=== PATIENT | male | born 1945 | race Caucasian/White ===

== ENCOUNTER 2020-02-08 07:46 | Day surgery (SDC) | payer MEDICARE, SELFPAY ==
--- NOTE | 2020-02-07 13:50 | P.CONAN_ITS ---
Documented by User: Ella Mcdanielsney 02/07/20 14:03 HPI - Anesthesia Eval Consult details Narrative: 74yo M for L ankle hardware removal s/p L ankle ORIF 10/2018 with GA-LMA 5 PMFSH Past Medical History Medical History Fatty liver History of tennis elbow HLD (hyperlipidemia) HTN (hypertension) ANTONY (obstructive sleep apnea) Osteoarthritis Rheumatic fever Shingles Skin cancer Surgical History Surgical History H/O colonoscopy History of ankle surgery Social History Social History Are you a primary animal care assistant to a significant other at home: No Do you presently have visiting nurse or other home services: No Smoking Status: Never smoker Use of substances other than those prescribed or required for medical reasons: No Advance Directives: Yes Advance Directives Information Provided: Yes Advance Directives on File: Yes (t) Advance Directives Date on File: 02/08/20 Meds Allergies Allergy/AdvReac Type Severity Reaction Status Date / Time Tetracyclines [TETRACYCLINES] Allergy Mild RASH Unverified 12/28/19 19:42 tetracycline Allergy Unknown Rash Verified 02/08/20 08:50 Home Medications Medication Instructions Recorded Confirmed Type hydrochlorothiazide 1 tab PO DAILY 02/07/20 02/07/20 History lisinopril 1 tab PO DAILY 02/07/20 02/07/20 History simvastatin 1 tab PO BEDTIME 02/07/20 02/07/20 History Exam Exam Date and Time: February 07, 2020 1350 Narrative Narrative: EKG 04/2019: SB@58 with 1st degree AV block Assessment and Plan Assessment Anesthesia Assessment: Chart Reviewed Documented by User: Vish Uriarte MD 02/08/20 09:08 PMFSH Past Medical History Medical History Fatty liver History of tennis elbow HLD (hyperlipidemia) HTN (hypertension) ANTONY (obstructive sleep apnea) Osteoarthritis Rheumatic fever Shingles Skin cancer Surgical History Surgical History H/O colonoscopy History of ankle surgery Social History Social History Are you a primary animal care assistant to a significant other at home: No Do you presently have visiting nurse or other home services: No Smoking Status: Never smoker Use of substances other than those prescribed or required for medical reasons: No Advance Directives: Yes Advance Directives Information Provided: Yes Advance Directives on File: Yes (t) Advance Directives Date on File: 02/08/20 Meds Allergies Allergy/AdvReac Type Severity Reaction Status Date / Time Tetracyclines [TETRACYCLINES] Allergy Mild RASH Unverified 12/28/19 19:42 tetracycline Allergy Unknown Rash Verified 02/08/20 08:50 Home Medications Medication Instructions Recorded Confirmed Type hydrochlorothiazide 1 tab PO DAILY 02/07/20 02/07/20 History lisinopril 1 tab PO DAILY 02/07/20 02/07/20 History simvastatin 1 tab PO BEDTIME 02/07/20 02/07/20 History Exam Airway Mallampati Class: II TM Dist: >3cm Neck ROM: Full Loose/Missing/Broken Teeth: No Heart: rrr Lungs: nl Other: ao Assessment and Plan Assessment Anesthesia Assessment: Anesthesia Plan Discussed and Chart Reviewed Final Anesthetic Review NPO: Yes ASA Class: II Final Preanesthetic Review: No Changes in Pt Med Stat, Meds/Allgs Chart Reviewed, Consent Obtained/Reviewed and Anes Risks/Benef Reviewed Patient Risk: Low Procedure Risk: Low Anesthetic Plan Anesthetic Plan: MAC: Disposition: Standard PACU
--- NOTE | 2020-02-08 06:46 | MHC.SHP ---
Pre-Procedural Eval Section A The patient is an INPATIENT: No Changes since office visit: No Cold of Flu in the past 2 weeks, No New Medical Problems, No Changes in Medication and No Patient answered all questions The History & Physical has been completed within 30 days and I have reviewed it.: Yes Section B Chief Complaint: Hx of ankle Surgery and Delayed Wound Healing Allergies: Allergies Allergy/AdvReac Type Severity Reaction Status Date / Time Tetracyclines [TETRACYCLINES] Allergy Mild RASH Unverified 12/28/19 19:42 tetracycline Allergy Unknown Verified 05/17/19 00:00 Plan Patient has been examined and remains a candidate for the planned procedure
[2020-02-08 08:18] VITALS: BP 144/78; PULSE 55; RESP 16; TEMP 36.6; O2SAT 98; BMI 33.7
[2020-02-08] MEDS: Lactated Ringers 1,000 ML 100 ML IVCONT (08:51)
--- NOTE | 2020-02-08 09:06 | FL_ITS ---
EXAMINATION: XR FLUOROSCOPY WITH IMAGES CLINICAL INFORMATION: Orthopedic hardware removal. COMPARISON: Radiographs left ankle 12/14/2018. TECHNIQUE: Fluoroscopy performed by Dr. Susan Wheat. Fluoroscopy time: 0.1 minutes DAP: 5.75 mGycm2 Images: 1 FINDINGS: There is a clamp pointed towards the metallic pin overlying the mid talus. Only one pin is demonstrated, 2 on prior exam 2019. There is plate and screws lower tibia as before. FL/FL guidance in OR IMPRESSION: Fluoroscopy for orthopedic procedure.
--- NOTE | 2020-02-08 10:00 | PM.PRCOR ---
Brief Operative Note Date of procedure: 02/08/20 Pre-op diagnosis: PAINFUL HARDWARE LEFT ANKLE Post-op diagnosis: same Procedure: REMOVAL PINS MEDIAL SIDE LEFT ANKLE Anesthesia: MAC and local Surgeon: Susan Wheat Estimated blood loss (mL): 0 Pathology: none sent Condition: stable Disposition: PACU
[2020-02-08 10:03] VITALS: BP 113/65; PULSE 55; RESP 16; TEMP 36.1; O2SAT 94
[2020-02-08 10:15] VITALS: BP 112/67; PULSE 70; RESP 18; O2SAT 95
--- NOTE | 2020-02-09 16:17 | OP_ITS ---
SURGEON: Susan Wheat MD PREOPERATIVE DIAGNOSIS: Painful hardware, left ankle. POSTOPERATIVE DIAGNOSIS: Painful hardware, left ankle. PROCEDURE PERFORMED: Removal of pins, medial side of the left ankle. ESTIMATED BLOOD LOSS: COMPLICATIONS: ANESTHESIA: ASSISTANTS: SPECIMENS: CLINICAL NOTE: This gentleman underwent an open reduction and internal fixation of his left ankle a while ago, who has had ongoing problems with some irritation by the pin on the medial side as this was causing some occasional blistering and slight fluid drainage. It was elected to remove and therefore after explaining the risks, benefits, alternatives and answering all his questions, it was mutually agreed upon to carry out the following procedure. DESCRIPTION OF PROCEDURE: Under MAC anesthesia as well as 2 mL of 0.75% Marcaine with epinephrine injected locally, a small incision was made over the old incision site. The 2 pins were identified under fluoroscopy and removed. Therefore, we proceeded to closure. The wound was irrigated. The skin approximated using interrupted 3-0 nylon. Sterile dressing was then applied. The patient then was transferred to the room bed, then taken to recovery room in good condition. Intraoperatively, there was no blood loss or complications. MD RACHEL Edwards/BHAVANA / [id number]
== END 2020-02-08 10:52 | disposition home or self-care (01) ==
PROVIDERS: Visit Provider Orthopaedic Surgery
PROC: (CPT 20680; principal; 2020-02-08 09:40)
DX: T81.89XA Other complications of procedures, not elsewhere classified, initial encounter (principal); T84.84XA Pain due to internal orthopedic prosthetic devices, implants and grafts, initial encounter; M25.572 Pain in left ankle and joints of left foot; Y83.8 Other surgical procedures as the cause of abnormal reaction of the patient, or of later complication, without mention of misadventure at the time of the procedure; Y92.9 Unspecified place or not applicable; I10 Essential (primary) hypertension; G47.33 Obstructive sleep apnea (adult) (pediatric); Z79.899 Other long term (current) drug therapy; Z88.1 Allergy status to other antibiotic agents
CPT/HCPCS: 20680; J3010

== ENCOUNTER → 2020-02-19 10:13 | Outpatient (BNVA) | payer MEDICARE, SELFPAY | PROVIDERS: Visit Provider Physician Assistant | DX: Z09 Encounter for follow-up examination after completed treatment for conditions other than malignant neoplasm (principal) | CPT/HCPCS: 99212 ==

== ENCOUNTER 2020-07-01 08:47 | Outpatient (REF) | payer MEDICARE, SELFPAY ==
--- NOTE | ~2020-07-01 | US_ITS ---
EXAMINATION: US RETROPERITONEAL LIMITED (RENAL ONLY) CLINICAL INFORMATION: Renal cyst. COMPARISON: None TECHNIQUE: Real-time imaging of the kidneys. FINDINGS: RIGHT KIDNEY: 13.0 x 6.9 x 7.1 cm (SAG x AP x TRV). The kidney is normal in size, contour, and echogenicity. Renal cortical thickness is normal. No renal calculi or hydronephrosis. There are 2 midpole cysts. They measure 5.7 x 4.4 x 4.6 cm and 2.0 x 1.7 x 1.9 cm and has septation. LEFT KIDNEY: 16.1 x 8.2 x 7.0 cm (SAG x AP x TRV). The kidney is normal in size, contour, and echogenicity. Renal cortical thickness is normal. No renal calculi or hydronephrosis. There are 3 anechoic cysts in the midpole. They measure 2.7 x 2.6 x 2.4 cm, 3.1 x 2.3 x 2.5 cm and 1.7 x 1.7 x 1.5 cm. US/US renal BI IMPRESSION: Bilateral renal cysts. One of the midpole cysts right kidney has septation and is complex.
== END 2020-07-01 08:48 | disposition home or self-care (01) ==
LOC: HO.US 08:47
PROVIDERS: PCP Internal Medicine; Visit Provider Internal Medicine
DX: N28.1 Cyst of kidney, acquired (principal)
CPT/HCPCS: 76775

== ENCOUNTER → 2020-09-03 09:10 | Outpatient (BNVA) | payer MEDICARE, SELFPAY | PROVIDERS: PCP Internal Medicine; Visit Provider Urology | DX: N28.1 Cyst of kidney, acquired (principal) | CPT/HCPCS: 99202 ==

== ENCOUNTER 2021-08-25 09:16 | Outpatient (REF) | payer MEDICARE, SELFPAY ==
--- NOTE | ~2021-08-25 | US_ITS ---
EXAMINATION: US RETROPERITONEAL LIMITED (RENAL ONLY) CLINICAL INFORMATION: Calculus of kidney. COMPARISON: Renal ultrasound 07/01/2020 TECHNIQUE: Real-time imaging of the kidneys. FINDINGS: RIGHT KIDNEY: 13.2 x 6.5 x 7.3 cm (SAG x AP x TRV). The kidney is normal in size, contour, and echogenicity. Renal cortical thickness is normal. No renal calculi or hydronephrosis. Benign-appearing and likely benign renal cysts, one with a thin internal avascular septation measuring up to 6.8 cm. No routine follow up imaging recommended. LEFT KIDNEY: 16.0 x 6.7 x 5.6 cm (SAG x AP x TRV). The kidney is normal in size, contour, and echogenicity. Renal cortical thickness is normal. No hydronephrosis. Likely benign renal cysts measuring up to 4.4 cm, one with a thin internal septation one with a thin internal septation, one with an one with possible mural calcium, no follow-up imaging recommended. A 5 mm nonobstructing left midpole renal stone new from prior. US/US renal BI IMPRESSION: 5 mm nonobstructing left midpole renal stone with new from prior.
== END 2021-08-25 09:17 | disposition home or self-care (01) ==
LOC: HO.US 09:16
PROVIDERS: PCP Internal Medicine; Visit Provider Urology
DX: N20.0 Calculus of kidney (principal)
CPT/HCPCS: 76775

== ENCOUNTER → 2021-09-09 13:42 | Outpatient (BNVA) | payer MEDICARE, SELFPAY | PROVIDERS: PCP Internal Medicine; Visit Provider Urology | DX: N20.0 Calculus of kidney (principal); N28.1 Cyst of kidney, acquired | CPT/HCPCS: 99212 ==

== ENCOUNTER 2021-10-20 12:30 | Outpatient (REF) | payer MEDICARE, SELFPAY ==
--- NOTE | ~2021-10-20 | XR_ITS ---
EXAMINATION: XR ANKLE, LEFT CLINICAL INFORMATION: Left ankle pain COMPARISON: Left ankle radiographs 12/14/2018 TECHNIQUE: AP, lateral, and mortise views of the left ankle. FINDINGS: Status post lateral plate and screw fixation of the distal fibula. Fixation is intact. No residual fracture line. Chronic transverse fracture deformity of the medial malleolus with significant widening of the medial clear space and widening of the syndesmotic space. Mild ankle joint space narrowing and minimal osteophyte formation compatible with mild degenerative change. No acute fracture or dislocation. No ankle joint effusion. Subtalar joint space is maintained. Prominent plantar calcaneal spur. XR/XR ankle LT min 3V IMPRESSION: 1. Mild post traumatic ankle joint osteoarthritis. 2. Chronic fracture deformity of the medial malleolus with incongruent ankle mortise with widening of the medial clear space and syndesmotic space. 3. Status post lateral plate and screw fixation of a prior healed fibular fracture. Fixation is intact. 4. No acute osseous injury identified.
== END 2021-10-20 12:31 | disposition home or self-care (01) ==
LOC: HO.HOSX 12:30
PROVIDERS: Visit Provider Physician Assistant
DX: M25.572 Pain in left ankle and joints of left foot (principal); M19.072 Primary osteoarthritis, left ankle and foot
CPT/HCPCS: 73610; 99212

== ENCOUNTER 2022-05-04 08:00 | Day surgery (SDC) | payer MEDICARE, SELFPAY ==
[2022-05-04 08:11] VITALS: BP 160/66; PULSE 63; RESP 20; TEMP 36.6; O2SAT 97; BMI 32.5
[2022-05-04] MEDS: Lactated Ringers 1,000 ML 100 ML IVCONT (08:42)
--- NOTE | 2022-05-04 09:11 | P.CONAN_ITS ---
HPI - Anesthesia Eval Consult details Narrative: 76 yo male patient for colonoscopy PMFSH Active Problems Active Problems: All Active Problems (Updated 05/01/22 @ 07:14 by Anyi Smith RN) History of removal of retained hardware (Acute) Complex renal cyst (Acute) Nephrolithiasis (Acute) Degenerative arthritis of toe joint (Acute) Past Medical History Medical History Fatty liver History of Mohs micrographic surgery for skin cancer History of tennis elbow HLD (hyperlipidemia) HTN (hypertension) ANTONY (obstructive sleep apnea) Osteoarthritis Renal cyst Rheumatic fever Shingles Skin cancer Family History Family history of problems with anesthesia: No Surgical History Surgical History H/O colonoscopy History of ankle surgery Hx of umbilical hernia repair History of Problems with Anesthesia: No Social History Social History Are you a primary veterinarian laboratory animal care to a significant other at home: No Do you presently have visiting nurse or other home services: No Patient Tobacco Use Status: Never used Tobacco Are you DNR?: No Advance Directives: Yes Advance Directives on File: Yes Advance Directives Date on File: 02/08/20 Meds Allergies Allergy/AdvReac Type Severity Reaction Status Date / Time Tetracyclines [TETRACYCLINES] Allergy Mild RASH Verified 10/20/21 13:38 tetracycline Allergy Unknown Rash Verified 10/20/21 13:38 Active Medications: Current Medications Sodium Biphosphate/Sodium Phosphate (Sodium Phosphate,Uintah-Dibasic 133 Ml Enema) 133 ml CO ONCE PRN PRN Reason: Poor Colonoscopy Prep Results Home Medications Medication Instructions Recorded Confirmed Last Taken Type hydrochlorothiazide 25 mg tablet 1 tab PO DAILY 02/07/20 05/04/22 05/02/22 History lisinopril 20 mg tablet (Zestril) 1 tab PO DAILY 02/07/20 05/04/22 05/02/22 History simvastatin 10 mg tablet (Zocor) 1 tab PO BEDTIME 02/07/20 05/04/22 05/02/22 History Joint Support 1 mg PO BID 05/01/22 05/04/22 05/02/22 History PreserVision AREDS-2 1 mg PO DAILY 01/05/04/22 05/02/22 History ascorbic acid (vitamin C) 500 mg 500 mg PO DAILY 05/01/22 05/01/22 05/02/22 History tablet (Vitamin C) multivitamin 1 tab PO DAILY 05/01/22 05/01/22 05/02/22 History red yeast rice 1 mg PO DAILY 05/01/22 05/04/22 05/02/22 History saw palmetto 1 mg PO DAILY 05/01/22 05/04/22 05/02/22 History vitamin E 1 mg PO DAILY 05/01/22 05/04/22 05/02/22 History Exam Exam Date and Time: May 04, 2022 0911 Height,Weight and Vital Signs: Height 5 ft 9 in Weight 99.79 kg Last Vital Signs Temp 98 F 05/04/22 08:11 Pulse 63 05/04/22 08:11 Resp 20 05/04/22 08:11 BP 160/66 H 05/04/22 08:11 Pulse Ox 97 05/04/22 08:11 O2 Del Method 05/04/22 08:11 Airway Mallampati Class: III TM Dist: >3cm Neck ROM: Full Loose/Missing/Broken Teeth: Yes (Broken tooth back top left. Denies loose or missing teeth) Heart: RRR ?murmur Lungs: CTAB Assessment and Plan Assessment Anesthesia Assessment: Anesthesia Plan Discussed and Chart Reviewed Final Anesthetic Review Family History of Problems with Anesthesia: No History of Problems with Anesthesia: No NPO: Yes ASA Class: III Final Preanesthetic Review: No Changes in Pt Med Stat, Meds/Allgs Chart Reviewed, Consent Obtained/Reviewed and Anes Risks/Benef Reviewed Patient Risk: Intermediate Procedure Risk: Low Assessment/Block/Sedation in SS: Assess/Block/Sedation-SS Anesthetic Plan Anesthetic Plan: MAC:
[2022-05-04 10:45] VITALS: BP 123/66; PULSE 65; RESP 16; TEMP 36.3; O2SAT 96
--- NOTE | 2022-05-04 10:46 | PM.OP ---
Brief Operative Note Date of Service: 05/04/22 Pre-op diagnosis: Screening Post-op diagnosis: other (Diverticulosis) Procedure: Colonoscopy to the cecum Surgeon: Luis Armando Salomon Anesthesia: MAC Was an Independent Video Producer used for this Procedure?: No Estimated blood loss (mL): 0 Pathology: none sent Condition: stable Disposition: PACU
[2022-05-04 11:00] VITALS: BP 149/76; PULSE 56; RESP 16; TEMP 37; O2SAT 97
--- NOTE | 2022-05-04 22:24 | OP_ITS ---
SURGEON: Luis Armando Salomon MD INDICATIONS: The patient presents for evaluation of personal history of colon polyps, family history of colon cancer, and colorectal cancer screening. Full consent was obtained from him for this, including risks of bleeding and perforation. PREOPERATIVE DIAGNOSIS: POSTOPERATIVE DIAGNOSIS: PROCEDURE PERFORMED: Colonoscopy to the cecum. ESTIMATED BLOOD LOSS: COMPLICATIONS: ANESTHESIA: Medications used, monitored anesthesia care. ASSISTANTS: SPECIMENS: PREOPERATIVE DIAGNOSES: Colorectal cancer screening, personal history of colon polyps, family history of colon cancer. POSTOPERATIVE DIAGNOSES: Colorectal cancer screening, personal history of colon polyps, family history of colon cancer, diverticulosis, and internal hemorrhoids. PROCEDURE IN DETAIL: The patient was placed in left lateral decubitus position. The digital rectal exam revealed no abnormalities. The Olympus videopediatric colonoscope was entered into the rectum and advanced to the cecum with the assistance of abdominal wall pressure. Once in the cecum, I did identify cecal pouch with normal-appearing ileocecal valve. There was transillumination of light deep in the right lower quadrant. The entire cecum, including the appendiceal orifice, appeared normal. The scope was then slowly withdrawn, assessing all mucosal surfaces carefully. Preparation was good, but there were some areas that required extra irrigation and suctioning to have adequate visualization. I did not visualize any other polyps, colitis, or angiodysplasia. There was a significant amount of diverticular disease in the sigmoid colon. In the rectum, the scope was retroflexed visualizing internal hemorrhoids, but no evidence of pathology. The rectal mucosa appeared normal. Scope was straightened and withdrawn from the patient. He tolerated the procedure well and was returned to recovery area in stable condition. IMPRESSION: 1. Diverticulosis. 2. Internal hemorrhoids. PLAN: Given his negative exam, and multiple colonoscopies that have also been negative, and his age of 76, I do not think he will need any further screening colonoscopies at this point. He will otherwise see me on a p.r.n. basis. MD EMILY Hernandez/BHAVANA / [id number] MTDD
== END 2022-05-04 12:54 | disposition home or self-care (01) ==
PROVIDERS: PCP Family Medicine; Visit Provider Internal Medicine
PROC: 0DJD8ZZ Inspection of Lower Intestinal Tract, Via Natural or Artificial Opening Endoscopic (ICD-10-PCS; CPT 45378; principal; 2022-05-04 09:40)
DX: Z12.11 Encounter for screening for malignant neoplasm of colon (principal); Z86.010 Personal history of colon polyps; Z80.0 Family history of malignant neoplasm of digestive organs; K57.30 Diverticulosis of large intestine without perforation or abscess without bleeding; K64.8 Other hemorrhoids; I10 Essential (primary) hypertension; E78.5 Hyperlipidemia, unspecified; N28.1 Cyst of kidney, acquired; Z79.899 Other long term (current) drug therapy; Z88.1 Allergy status to other antibiotic agents; Z85.828 Personal history of other malignant neoplasm of skin
CPT/HCPCS: G0105

== ENCOUNTER 2022-08-26 14:35 | Outpatient (REF) | payer MEDICARE, SELFPAY ==
--- NOTE | ~2022-08-26 | US_ITS ---
EXAMINATION: US RETROPERITONEAL LIMITED (RENAL ONLY) CLINICAL INFORMATION: Calculus of kidney. COMPARISON: Ultrasound retroperitoneal limited (renal only) 08/25/2021 and 07/01/2020. TECHNIQUE: Real-time imaging of the kidneys. Technically limited study secondary to bowel gas and body habitus. FINDINGS: RIGHT KIDNEY: 13.5 x 7.0 x 6.3 cm (SAG x AP x TRV). The kidney is normal in size, contour, and echogenicity. Renal cortical thickness is normal. No renal calculi or hydronephrosis. Multiple renal cysts, the largest measuring 6.1 cm in the midpole with a thin avascular septation, almost certainly benign. LEFT KIDNEY: 15.0 x 7.5 x 5.7 cm (SAG x AP x TRV). The kidney is normal in size, contour, and echogenicity. Renal cortical thickness is normal. No hydronephrosis. Nonobstructing 4 mm mid pole stone. Multiple renal cysts, the largest measuring up to 2.7 cm, benign appearing, Followup imaging is not routinely recommended for benign appearing cysts.. US/US renal BI IMPRESSION: * Nonobstructing left renal nephrolithiasis. No hydronephrosis.
== END 2022-08-26 14:36 | disposition home or self-care (01) ==
LOC: HO.US 14:35
PROVIDERS: PCP Family Medicine; Visit Provider Urology
DX: N20.0 Calculus of kidney (principal)
CPT/HCPCS: 76775

== ENCOUNTER 2022-11-25 08:52 | Outpatient (REF) | payer MEDICARE, SELFPAY ==
[2022-11-25 11:16] LABS: MANUAL DIFF FLAG NO
[2022-11-25 11:36] LABS: Basophils Percent Auto 0.7 % (0-2); Eosinophils Absolute Auto 0.3 X10*3/uL (0.0-0.4); Hematocrit 41.7 % (42.0-52.0); Hemoglobin 14.3 g/dl (14.0-18.0); Imm Gran Abs Auto 0.02 X10*3/uL (0.00-0.03); Imm Gran Pct Auto 0.3 % (0.0-0.4); Lymphocytes Absolute Auto 1.8 X10*3/uL (1.2-4.9); Lymphocytes Percent Auto 31.2 % (20-40); Mean Corpuscular HGB Conc 34.3 g/dl (31.0-36.0); Mean Corpuscular Volume 90.5 fL (80.0-98.0); Mean Platelet Volume 11.6 fL (9.4-12.4); Monocytes Absolute Auto 0.6 X10*3/uL (0.1-1.2); Monocytes Percent Auto 9.6 % (2-11); Neutrophils Absolute Auto 3.1 x10*3/uL (2.0-8.3); Neutrophils Percent Auto 53.2 % (45-73); Platelet Count 207 X10*3/uL (160-400); Red Blood Count 4.61 X10*6/uL (4.60-5.80); Red Cell Distribution Width 12.7 % (11.0-16.0); White Blood Count 5.8 X10*3/uL (4.8-10.8)
[2022-11-25 11:38] LABS: Estimated Average Glucose 100 mg/dL; Hemoglobin A1c % 5.1 %
[2022-11-25 12:02] LABS: Creatinine Urine 92.99 mg/dL; Microalbumin Urine < 5.0 mg/L
[2022-11-25 12:04] LABS: HBS Num1 0.22 mIU/mL (0-7.99); HBc Num1 0.09 S/CO (0.00-0.79); HBsAGNum1 0.29 S/CO (0.00-0.99); HIV AB/AG Nonreactive (Nonreactive); HIV Num 1 0.07 S/CO (0.00-0.99); Hepatitis B Core Antibody Nonreactive (Nonreactive); Hepatitis B Surface Antigen Negative (Negative); ~Hepatitis B Surface Antibody NONREACTIVE (Nonreactive)
[2022-11-25 12:09] LABS: Syphilis Screen Nonreactive (Nonreactive)
[2022-11-25 12:15] LABS: ~HepC Num1 0.13 S/CO (0.00-0.79); ~Hepatitis C Antibody Nonreactive (Nonreactive)
[2022-11-25 12:21] LABS: Alanine Aminotransferase 37 U/L (0-40); Albumin Level 4.3 g/dL (3.5-5.0); Alkaline Phosphatase 49 U/L (39-117); Anion Gap 11 (12-20); Aspartate Amino Transferase 33 U/L (5-37); Bilirubin Total 0.8 mg/dL (0.0-1.0); Blood Urea Nitrogen 12 mg/dL (9-16); Calcium 9.5 mg/dL (8.4-10.2); Carbon Dioxide 26 mmol/L (22-29); Chloride 107 mmol/L (96-108); Cholesterol 140 mg/dL; Estimated Glomerular Filt Rate > 60; Glucose Random 109 mg/dL (60-115); HDL Cholesterol 32 mg/dL; LDL Cholesterol Calculated 55 mg/dl; Potassium 3.6 mmol/L (3.3-5.1); Sodium 140 mmol/L (135-145); TSH reflex Free T4 1.45 uIU/mL (0.32-4.0); Triglycerides 266 mg/dL; Vitamin D 25-OH Total 75.1 ng/mL (>30)
[2022-11-25 12:26] LABS: Folate > 20.0 ng/mL (> or = 4.0); Vitamin B12 587 pg/mL (200-900)
[2022-11-25 18:21] LABS: CT PCR NOT DETECTED (Not Detect.); NG PCR NOT DETECTED (Not Detect.)
== END 2022-11-25 08:53 | disposition home or self-care (01) ==
LOC: HO.HHCL 08:52
PROVIDERS: Visit Provider Student in an Organized Health Care Education/Training Program
DX: Z00.00 Encounter for general adult medical examination without abnormal findings (principal); Z20.2 Contact with and (suspected) exposure to infections with a predominantly sexual mode of transmission; E78.5 Hyperlipidemia, unspecified; Z13.29 Encounter for screening for other suspected endocrine disorder; Z13.1 Encounter for screening for diabetes mellitus
CPT/HCPCS: 0353U; 80053; 80061; 82043; 82306; 82607; 82746; 83036; 84443; 85025; 86704; 86706; 86780; 86803; 87340; 87389

== ENCOUNTER 2022-12-24 11:19 | Outpatient (AMB) | payer MEDICARE, SELFPAY ==
--- NOTE | 2022-12-24 11:20 | A.OFFVIS_ITS ---
Intake Intake Visit Reasons: 1 yr follow up / US Allergies Tetracyclines [TETRACYCLINES] Allergy (Mild, Verified 12/24/22 11:21) RASH tetracycline Allergy (Unknown, Verified 12/24/22 11:21) Rash HPI HPI Comments History of Present Illness Details Jez is a 77-year-old male who presents today via Tele-health for a follow-up. 12/24/2022? He is followed today via Tele-health for?US. He has seen Aditya Edgar on 09/09/2021 for complex renal cyst. The patient was advised to follow-up in 1 year with imaging US. He denies any hematuria. He denies any other urinary tract symptoms at this time. I reviewed the renal US results from 08/26/2022 revealed nonobstructing left renal nephrolithiasis. No hydronephrosis.? Plan: To monitor kidney stone. Bilateral renal cyst has been stable and meets the criteria of simple bengin cyst, type 1 and type 2. Renal US was ordered. Follow-up with Dr. Varela in 1 year, renal US prior. [facility] Medical History History of Mohs micrographic surgery for skin cancer Renal cyst History of tennis elbow Shingles Skin cancer Osteoarthritis Fatty liver ANTONY (obstructive sleep apnea) Rheumatic fever HLD (hyperlipidemia) HTN (hypertension) Surgical History Hx of umbilical hernia repair H/O colonoscopy History of ankle surgery Social History Are you a primary housekeeper child care to a significant other at home: No Do you presently have visiting nurse or other home services: No Patient Tobacco Use Status: Never used Tobacco Advance Directives Date on File: 02/08/20 Review of Systems Const All systems reviewed & are unremarkable except as noted in HPI and below Reports no additional complaints Eyes Reports no additional complaints ENT Reports no additional complaints Card Denies dyspnea Resp Denies cough and Denies dyspnea GI Reports no additional complaints Musc Reports no additional complaints Skin/Breast Denies rash and Denies unusual bruising Neuro Reports no additional complaints Psych Reports no additional complaints Endo Reports no additional complaints Adrian/Lymph Reports no additional complaints Aller/Immun Reports no additional complaints Results Reviewed Results Reviewed: Date of Service: 08/26/22 EXAMINATION:? US RETROPERITONEAL LIMITED (RENAL ONLY) CLINICAL INFORMATION: Calculus of kidney. COMPARISON:? Ultrasound retroperitoneal limited (renal only) 08/25/2021 and 07/01/2020. FINDINGS: RIGHT KIDNEY: 13.5 x 7.0 x 6.3 cm (SAG x AP x TRV). The kidney is normal in size, contour, and echogenicity. Renal cortical thickness is normal. No renal calculi or hydronephrosis. Multiple renal cysts, the largest measuring 6.1 cm in the midpole with a thin avascular septation, almost certainly benign. LEFT KIDNEY: 15.0 x 7.5 x 5.7 cm (SAG x AP x TRV). The kidney is normal in size, contour, and echogenicity. Renal cortical thickness is normal. No hydronephrosis. Nonobstructing 4 mm mid pole stone. Multiple renal cysts, the largest measuring up to 2.7 cm, benign appearing, Followup imaging is not routinely recommended for benign appearing cysts.. IMPRESSION:? *? Nonobstructing left renal nephrolithiasis. No hydronephrosis. Assessment & Plan Assessment & Plan (1) Nephrolithiasis: Code(s): N20.0 - Calculus of kidney (2) Complex renal cyst: Code(s): N28.1 - Cyst of kidney, acquired Plan To monitor kidney stone. Bilateral renal cyst has been stable and meets the criteria of simple bengin cyst, type 1 and type 2. Renal US was ordered. Follow-up with Dr. Varela in 1 year, renal US prior. Patient Instructions: The patient had an opportunity to ask questions regarding treatment plan. All questions were answered. Imaging, Laboratory studies and physical exam results were discussed and reviewed in detail. No major barriers to understanding were identified. The patient expressed understanding and agreement with the above treatment plan.? ? ? The patient is aware they should contact our office by phone for worsening of their current condition or the appearance of new symptoms. Compliance is encouraged with any medications and followup testing that is ordered.? ? ? It is a privilege to be allowed the opportunity to participate in the urologic care of your patient. If you have any questions or concerns regarding treatment for the above conditions please do not hesitate to contact me. The office telephone contact is [phone].? ? ? This note is constructed in part using voice recognition software. While every effort has been made to ensure accuracy director of workforce development errors may have been included.? ? ? Yours sincerely,? ? ? Gaston Almanzar MD? Telehealth Telehealth Location of provider rendering services: practice address Location of patient: address on file Patient Identification confirmed using: Name, : Yes Telehealth method: voice only Patient verbally consented to treatment: Yes Patient verbally consented to billing insurance company: Yes Patient informed of any privacy concerns related to visit: Yes Minutes spent on Phone/Video with Pt.: 15 Coding Level of Care Code Tele Est Pt Level 3 (81849) Diagnoses Nephrolithiasis N20.0 Complex renal cyst N28.1
== END 2022-12-24 12:21 | disposition home or self-care (01) ==
LOC: HO.HUSH 11:19
PROVIDERS: PCP Family Medicine; Visit Provider Urology
DX: N20.0 Calculus of kidney (principal); N28.1 Cyst of kidney, acquired
CPT/HCPCS: 99442

== ENCOUNTER → 2022-12-24 11:19 | Outpatient (BNVA) | payer MEDICARE, SELFPAY | PROVIDERS: PCP Family Medicine; Visit Provider Urology ==

== ENCOUNTER 2023-03-18 08:54 | Outpatient (REF) | payer MEDICARE, SELFPAY ==
[2023-03-18 12:25] LABS: Alanine Aminotransferase 28 U/L (0-40); Albumin Level 4.3 g/dL (3.5-5.0); Alkaline Phosphatase 59 U/L (39-117); Anion Gap 10 (12-20); Aspartate Amino Transferase 28 U/L (5-37); Bilirubin Total 1.1 mg/dL (0.0-1.0); Blood Urea Nitrogen 12 mg/dL (9-16); Calcium 9.7 mg/dL (8.4-10.2); Carbon Dioxide 27 mmol/L (22-29); Chloride 107 mmol/L (96-108); Cholesterol 129 mg/dL (<200); Estimated Glomerular Filt Rate > 60; Glucose Random 106 mg/dL (60-115); HDL Cholesterol 38 mg/dL (>40); LDL Cholesterol Calculated 67 mg/dL (<100); Potassium 4.2 mmol/L (3.3-5.1); Sodium 140 mmol/L (135-145); Total Protein 7.1 g/dL (6.5-8.0); Triglycerides 122 mg/dL (<150)
== END 2023-03-18 08:55 | disposition home or self-care (01) ==
LOC: HO.HHCL 08:54
PROVIDERS: Visit Provider Student in an Organized Health Care Education/Training Program
DX: E78.5 Hyperlipidemia, unspecified (principal)
CPT/HCPCS: 36415; 80053; 80061

== ENCOUNTER 2023-08-30 14:25 | Outpatient (AMB) | payer MEDICARE, SELFPAY ==
--- NOTE | 2023-08-30 14:51 | MHC.OFFVIS ---
Vital Signs 08/30/23 14:57 Height 5 ft 9 in Weight 215 lb BMI 31.7 Intake Visit Reasons: Newprob-left shoulder pain-PCP referral Intake Note: Jez a 78 year old right hand dominant male who presents today for an evaluation of left shoulder pain. Patient reports multiple injuries in high school and hx of cortisone injection of bilateral shoulders. He found relief after the third cortisone injection that was done in the late . He was recently working out at the [employer] and noticed pain in his left shoulder. He also mentions on 05/09/23 he felt he dislocated his shoulder while in bed sleeping. His pain fluctuates in intensity. Currently he states his pain has been tolerable. Allergies Tetracyclines [TETRACYCLINES] Allergy (Mild, Verified 08/30/23 15:03) RASH tetracycline Allergy (Unknown, Verified 08/30/23 15:03) Rash HPI HPI Newprob-left shoulder pain-PCP referral: Details: 78-year-old right hand dominant male who presents to the office today for evaluation of left shoulder pain. He has a history of multiple injuries in high school and has had cortisone injections on his bilateral shoulders that provided him relief. He reports he noticed pain in his left shoulder with working out at the [employer]. He was seen by his PCP who referred him to our office. He also states he dislocated his shoulder on 05/09/23 while sleeping in bed. He currently reports he has tolerable pain in his shoulder that fluctuates in intensity. His pain is aggravated with reaching back. He denies any pain at night. He takes Aleve for his pain. [facility] Medical History History of Mohs micrographic surgery for skin cancer Renal cyst History of tennis elbow Shingles Skin cancer Osteoarthritis Fatty liver ANTONY (obstructive sleep apnea) Rheumatic fever HLD (hyperlipidemia) HTN (hypertension) Surgical History Hx of umbilical hernia repair H/O colonoscopy History of ankle surgery Social History Are you a primary health care / medical job titles to a significant other at home: No Do you presently have visiting nurse or other home services: No Patient Tobacco Use Status: Never used Tobacco Advance Directives Date on File: 02/08/20 Review of Systems Const All systems reviewed & are unremarkable except as noted in HPI and below Physical Exam Vital Signs: BMI result Body Mass Index 31.7 Extrem Other: Left shoulder normal to inspection. Tenderness over the bicipital groove and along the deltoid region of the shoulder. Forward flexion to 175, external rotation to 90, internal rotation to S1. 5/5 RTC strength. Positive Olivas and O?Narinder?s. NVI. Results Reviewed Results Reviewed: Xrays were obtained in the office today and personally reviewed by me of the left shoulder show acj and ghj oa Assessment & Plan Assessment & Plan (1) Tendonitis of left rotator cuff: Code(s): M75.82 - Other shoulder lesions, left shoulder Category: Medical (2) Osteoarthritis of left shoulder: Code(s): M19.012 - Primary osteoarthritis, left shoulder Category: Medical Plan We discussed options which include PT, NSAIDs and injections. The patient will defer on the injection today and proceed with PT and NSAIDs. If symptoms persist, the patient will contact me for an injection, otherwise, PRN. Orders: Orders PT Evaluation and Treatment Today M75.82 - Other shoulder lesions, left shoulder XR shoulder LT min 2V Today M25.512 - Pain in left shoulder Patient Instructions: Scribed for Trudy Cole PA-C, by Eddie Wei medical equipment repair technician, on 08/30/2023 at 3:00 PM EST.? I, Trudy Cole PA-C, have personally reviewed and agree with the information entered by the scribe. Coding Level of Care Code Est Pt Level 3 (41796) Diagnoses Tendonitis of left rotator cuff M75.82 Osteoarthritis of left shoulder M19.012
[2023-08-30 14:57] VITALS: BMI 31.7
== END 2023-08-30 15:37 | disposition home or self-care (01) ==
PROVIDERS: PCP Family Medicine; Visit Provider Physician Assistant
DX: M75.82 Other shoulder lesions, left shoulder (principal); M19.012 Primary osteoarthritis, left shoulder
CPT/HCPCS: 99213

== ENCOUNTER 2023-08-30 15:11 | Outpatient (REF) | payer MEDICARE, SELFPAY ==
--- NOTE | ~2023-08-30 | XR_ITS ---
EXAMINATION: XR SHOULDER, LEFT CLINICAL INFORMATION: Pain in left shoulder. COMPARISON: None available. TECHNIQUE: 3 views of the left shoulder. FINDINGS: The bones are diffusely demineralized. Advanced degenerative changes in the acromioclavicular joint with loss of joint space and hypertrophic change. Glenohumeral alignment is preserved. Advanced degenerative changes in the glenohumeral joint with joint space narrowing and hypertrophic change. XR/XR shoulder LT min 2V IMPRESSION: Advanced degenerative changes in the acromioclavicular and glenohumeral joints.
== END 2023-08-30 15:12 | disposition home or self-care (01) ==
LOC: HO.HOSX 15:11
PROVIDERS: Visit Provider Physician Assistant
DX: M75.82 Other shoulder lesions, left shoulder (principal); M19.012 Primary osteoarthritis, left shoulder
CPT/HCPCS: 73030; 99212

== ENCOUNTER 2023-12-21 10:37 | Outpatient (REF) | payer MEDICARE, SELFPAY ==
--- NOTE | ~2023-12-21 | XR_ITS ---
EXAMINATION: XR FOOT, LEFT CLINICAL INFORMATION: Chronic pain base of 5th toe. COMPARISON: X-ray left ankle October 2021 TECHNIQUE: AP, lateral, and oblique views of the left foot. FINDINGS: 5th metatarsal normal. There is prominent flexion of the 2nd through 5th MTP joints. Otherwise the bony joints are normally aligned. No arthrosis. Small plantar calcaneal spur. Postsurgical changes partially visualized the distal fibula with plate and screw fixation still present. Arterial calcification present. XR/XR foot LT min 3V IMPRESSION: 1. No abnormality of the 5th metatarsal. No acute abnormality 2. Calcific atherosclerotic disease. Electronically signed by: Won Alcala MD 01/05/2024 06:35 AM EDT RP
== END 2023-12-21 10:38 | disposition home or self-care (01) ==
LOC: HO.HHCX 10:37
PROVIDERS: Visit Provider Student in an Organized Health Care Education/Training Program
DX: M79.672 Pain in left foot (principal)
CPT/HCPCS: 73630

== ENCOUNTER 2023-12-24 08:53 | Outpatient (REF) | payer MEDICARE, SELFPAY ==
--- NOTE | ~2023-12-24 | US_ITS ---
EXAMINATION: US RETROPERITONEAL LIMITED (RENAL ONLY) CLINICAL INFORMATION: Cyst of kidney, acquired. COMPARISON: Renal ultrasound 08/26/2022 and 08/25/2021. TECHNIQUE: Real-time imaging of the kidneys. FINDINGS: RIGHT KIDNEY: 13.2 x 7.3 x 7.7 cm (SAG x AP x TRV). The kidney is normal in size, contour, and echogenicity. Renal cortical thickness is normal. No renal calculi or hydronephrosis. Benign-appearing renal cysts and likely benign renal cysts measuring up to 8.1 cm, with a 2.4 cm thinly septated cyst in the right lower renal pole, previously 2.2 cm. No follow-up imaging recommended. LEFT KIDNEY: 14.9 x 6.9 x 5.8 cm (SAG x AP x TRV). The kidney is normal in size, contour, and echogenicity. Renal cortical thickness is normal. No renal calculi or hydronephrosis. Benign-appearing renal cysts and likely benign renal cysts measuring up to 3.5 cm , the largest of which demonstrates a mural calcification new from prior, previously 2.7 cm. No follow-up imaging recommended. US/US renal BI IMPRESSION: Benign-appearing and likely benign bilateral renal cysts measuring up to 8.1 cm on the right and 3.5 cm on the left, no follow-up imaging recommended. Electronically signed by: Dolores Mcgill MD 01/03/2024 06:14 PM EDT
== END 2023-12-24 08:54 | disposition home or self-care (01) ==
LOC: HO.US 08:53
PROVIDERS: PCP Student in an Organized Health Care Education/Training Program; Visit Provider Urology
DX: N28.1 Cyst of kidney, acquired (principal)
CPT/HCPCS: 76775

== ENCOUNTER 2024-01-20 08:36 | Outpatient (REF) | payer MEDICARE, SELFPAY ==
[2024-01-20 11:41] LABS: Hematocrit 41.2 % (42.0-52.0); Mean Corpuscular Hemoglobin 31.2 pg (27.0-33.0); Mean Corpuscular Volume 91.8 fL (80.0-98.0); Mean Platelet Volume 11.3 fL (9.4-12.4); Platelet Count 208 X10*3/uL (160-400); Red Blood Count 4.49 X10*6/uL (4.60-5.80); White Blood Count 5.7 X10*3/uL (4.8-10.8)
[2024-01-20 11:57] LABS: Alanine Aminotransferase 33 U/L (0-40); Albumin Level 4.2 g/dL (3.5-5.0); Alkaline Phosphatase 55 U/L (39-117); Anion Gap 10 (12-20); Aspartate Amino Transferase 33 U/L (5-37); Bilirubin Total 1.2 mg/dL (0.0-1.0); Blood Urea Nitrogen 14 mg/dL (9-16); Calcium 9.6 mg/dL (8.4-10.2); Carbon Dioxide 27 mmol/L (22-29); Chloride 109 mmol/L (96-108); Cholesterol 127 mg/dL (<200); Estimated Glomerular Filt Rate > 60; Glucose Random 110 mg/dL (60-115); HDL Cholesterol 36 mg/dL (>40); LDL Cholesterol Calculated 68 mg/dL (<100); Potassium 3.7 mmol/L (3.3-5.1); Sodium 142 mmol/L (135-145); Total Protein 6.8 g/dL (6.5-8.0); Triglycerides 115 mg/dL (<150)
[2024-01-20 12:02] LABS: Estimated Average Glucose 100 mg/dL; Hemoglobin A1C 111.3662 umol/L; Hemoglobin A1c % 5.1 % (<6.0); Total Hemoglobin (HGBA1C) 3445.1838 umol/L
[2024-01-20 12:14] LABS: TSH reflex Free T4 1.63 uIU/mL (0.32-4.0); Vitamin D 25-OH Total 68.5 ng/mL (>30)
[2024-01-20 12:31] LABS: Creatinine Urine 160.44 mg/dL; Microalbum/Creatinine Ratio Ur 11.2 ug/mg cr (<30)
== END 2024-01-20 08:37 | disposition home or self-care (01) ==
LOC: HO.HHCL 08:36
PROVIDERS: Visit Provider Student in an Organized Health Care Education/Training Program
DX: Z00.00 Encounter for general adult medical examination without abnormal findings (principal); Z13.1 Encounter for screening for diabetes mellitus
CPT/HCPCS: 36415; 80053; 80061; 82043; 82306; 82570; 83036; 84443; 85027

== ENCOUNTER 2024-01-25 13:14 | Outpatient (AMB) | payer MEDICARE, SELFPAY ==
--- NOTE | 2024-01-25 13:50 | MHC.OFFVIS ---
Intake Visit Reasons: 1Y Ultrasound(set) Intake Note: Patient is present for 1Y ULTRASOUND Urology Medication:NONE Antibiotic Allergy:NONE Blood Thinner:NONE Celery Packer Required: No Allergies Tetracyclines [TETRACYCLINES] Allergy (Mild, Verified 01/25/24 13:52) RASH tetracycline Allergy (Unknown, Verified 01/25/24 13:52) Rash HPI Comments Details: Jez is a pleasant male. He is a patient of Dr. Sheriff. He seen for the following urologic conditions - complex renal cyst Yearly review complex renal cyst No interval change No evidence of stones P.r.n. follow-up Will call if has any symptoms Complex renal cyst - nephrolithiasis Initially diagnosed at [facility] 2014 Has been followed with yearly ultrasounds Was not able to get 1 in the past 2 years Here today with prior imaging documentation Imaging - 07/31 [facility] bilateral renal cysts 5.7 cm, 2.5 cm on right, between 1.5 and 3.5 cm on left. Right cyst with septation - 08/31 bilateral ultrasound with bilateral renal cysts simple in nature, 5 mm stone left side - 12/03 bilateral ultrasound renal cysts stable no stone Discussion today regarding natural history of renal cyst Continue with surveillance imaging for stone PFSH Medical History History of Mohs micrographic surgery for skin cancer Renal cyst History of tennis elbow Shingles Skin cancer Osteoarthritis Fatty liver ANTONY (obstructive sleep apnea) Rheumatic fever HLD (hyperlipidemia) HTN (hypertension) Surgical History Hx of umbilical hernia repair H/O colonoscopy History of ankle surgery Social History Are you a primary manager intensive care to a significant other at home: No Do you presently have visiting nurse or other home services: No Patient Tobacco Use Status: Never used Tobacco Advance Directives Date on File: 02/08/20 Review of Systems Const Denies chills and Denies fever(s) Card Reports no additional complaints and Denies syncope Resp Denies cough GI Denies abdominal pain and Denies heartburn Reports as per HPI and Denies change in libido Neuro Denies syncope Psych Denies change in libido Endo Denies change in libido Physical Exam Const General: cooperative, healthy appearing, comfortable and no acute distress Orientation/consciousness: patient oriented x3 HEENT Face and sinus: Yes normal facial exam Mouth: moist mucous membranes Neck Neck: Yes normal visual inspection, Yes full ROM and Yes trachea midline Chest Chest palpation & inspection: normal inspection of the chest Resp Effort & Inspection: normal respiratory effort, able to speak in complete sentences and no respiratory distress GI Inspection: Yes normal to inspection Back/Spine/Pelvis Cervical Spine: normal cervical lordosis Thoracic/Lumbar Spine: thoracic and lumbar spine normal to inspection Skin General skin exam: no rashes or lesions noted Neuro General: patient oriented x3, gait normal, tone normal and moves all extremities Extrem General: Yes normal to inspection and Yes capillary refill normal Assessment & Plan Assessment & Plan (1) Nephrolithiasis: Code(s): N20.0 - Calculus of kidney Category: Medical (2) Complex renal cyst: Code(s): N28.1 - Cyst of kidney, acquired Category: Medical Plan P.r.n. follow-up Patient Instructions: Imaging studies, laboratory and physical exam results were discussed and reviewed in detail. No major barriers to patient understanding were identified. An opportunity to ask questions regarding the treatment plan was provided. All questions were answered. The patient expressed understanding and agreement with the above treatment plan. The patient is aware they should contact our office by phone for worsening of their current condition or the appearance of new urologic symptoms. Compliance is encouraged with any medications and followup testing that is ordered. It is a privilege to participate in the urologic care of your patient. If you have any questions or concerns regarding treatment for the above conditions, or other urologic issues, please do not hesitate to contact me. The office telephone contact is [phone]. This note is constructed using voice recognition software. While every effort has been made to ensure accuracy camelid fiber sorter errors may have been included. Yours sincerely, Dr Aditya Varela MD, [facility] - Urology Providers of Expert, Compassionate Care for the Genitourinary System Coding Level of Care Code Est Pt Level 4 (60662) Diagnoses Nephrolithiasis N20.0 Complex renal cyst N28.1
== END 2024-01-25 15:22 | disposition home or self-care (01) ==
PROVIDERS: PCP Family Medicine; Visit Provider Urology
DX: N20.0 Calculus of kidney (principal); N28.1 Cyst of kidney, acquired
CPT/HCPCS: 99214

== ENCOUNTER → 2024-01-25 13:14 | Outpatient (BNVA) | payer MEDICARE, SELFPAY | PROVIDERS: PCP Family Medicine; Visit Provider Urology | DX: Z09 Encounter for follow-up examination after completed treatment for conditions other than malignant neoplasm (principal); N20.0 Calculus of kidney; N28.1 Cyst of kidney, acquired | CPT/HCPCS: 99212 ==

== ENCOUNTER 2024-05-22 13:25 | Outpatient (AMB) | payer BC, SELFPAY ==
--- NOTE | 2024-05-22 13:58 | MHC.OFFVIS ---
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: No Allergies Tetracyclines [TETRACYCLINES] Allergy (Mild, Verified 05/22/24 14:05) RASH Medication List - Last Reconciled 05/22/24 by Tristian Hollis MD ascorbic acid (vitamin C) (Vitamin C) 500 mg PO DAILY atorvastatin 20 mg PO DAILY cholecalciferol (vitamin D3) 50 mcg PO DAILY clonazepam 0.5 mg PO DAILY PRN hydrochlorothiazide 25 mg PO DAILY [Joint Support 1 mg PO BID] lisinopril (Zestril) 20 mg PO DAILY multivitamin 1 tab PO DAILY [PreserVision AREDS-2 1 mg PO DAILY] [red yeast rice 1 mg PO DAILY] [saw palmetto 1 mg PO DAILY] [vitamin E 1 mg PO DAILY] zolpidem 10 mg PO PRN HPI Comments Details: Thank you for referring Jez in cardiology consultation today for abnormal EKG. He is a pleasant 78-year-old male who remains very active and says he still walks 35 minutes at 3 miles an hour pace 4 to 5 times a week. He said he feels no symptoms associated with. Denies any symptoms of chest pain or shortness of breath. He has history of hypertension as well as hyperlipidemia both of which are treated currently with well optimized LDL at 68 mg/dL and well optimized blood pressure at home measurements. He said he has white coat hypertension and usually has elevated blood pressure during physician office visits. He has had an echocardiogram few years ago which had shown no significant structural abnormality except for mild calcific changes in the aortic valve without any significant suggestive of rheumatic heart disease. He said he had a rheumatic fever at age of 5 and was told that he had a murmur has had a murmur since then. He has had never had cardiac events including no history of myocardial infarction or any revascularization. He maintains pretty active life, and was referred here for further evaluation for management. He denies any symptoms of orthopnea, PND, leg edema, prolonged palpitation, irregular heartbeat, lightheadedness, syncope. Takes his medications regularly. [facility] Medical History History of Mohs micrographic surgery for skin cancer Renal cyst History of tennis elbow Shingles Skin cancer Osteoarthritis Fatty liver ANTONY (obstructive sleep apnea) Rheumatic fever HLD (hyperlipidemia) HTN (hypertension) Surgical History Hx of umbilical hernia repair H/O colonoscopy History of ankle surgery Family History Father CAD (coronary artery disease) CHF (congestive heart failure) Mother Breast cancer Paternal Uncle CAD (coronary artery disease) Social History Are you a primary healthcare prof to a significant other at home: No Do you presently have visiting nurse or other home services: No Patient Tobacco Use Status: Never used Tobacco Advance Directives Date on File: 02/08/20 Review of Systems Const Denies chills, Denies daytime sleepiness, Denies fatigue, Denies fever(s), Denies frequent falls, Denies poor appetite, Denies snoring, Denies stops breathing during sleep, Denies weakness, Denies weight gain and Denies weight loss Eyes Denies loss of vision ENT Denies dizziness and Denies hearing loss Card Denies chest pain, Denies claudication, Denies leg edema, Denies lightheadedness, Denies palpitations, Denies dyspnea, Denies dyspnea on exertion and Denies orthopnea Resp Denies cough, Denies excessive phlegm production, Denies dyspnea, Denies dyspnea on exertion, Denies snoring and Denies wheezing GI Denies abdominal pain, Denies hematochezia, Denies change in bowel habits, Denies nausea and Denies vomiting Denies dysuria and Denies urinary frequency Musc Denies arthralgias, Denies muscle weakness, Denies numbness and Denies other (frequent falls) Skin/Breast Denies nail changes and Denies rash Neuro Denies Abnormal speech present, Denies dizziness, Denies frequent falls, Denies loss of vision, Denies memory loss, Denies numbness and Denies weakness Psych Denies depression and Denies memory loss Endo Denies fatigue and Denies palpitations Adrian/Lymph Reports easy bruising and Reports other (anemia) Aller/Immun Denies wheezing Physical Exam Vital Signs: Last Vital Signs Pulse 60 05/22/24 14:00 BP 150/70 H 05/22/24 14:00 BMI result Body Mass Index 31.6 Const General: cooperative, comfortable, no acute distress, alert and awake Nutritional Appearance: overweight Orientation/consciousness: patient oriented x3 Limitations: no limitations HEENT Head: Yes normocephalic and Yes occipital foramen tenderness Neck Neck: Yes trachea midline, Yes supple and Yes no JVD Resp Effort & Inspection: normal respiratory effort Auscultation: clear to auscultation bilaterally Cardio Jugular venous distension: no JVD Rate: regular rate Rhythm: regular rhythm Heart sounds: S1 normal heart sound present, S2 normal heart sound present, no click, no gallops and Murmur heart sound present systolic early GI Auscultation: normal bowel sounds Skin General skin exam: no rashes or lesions noted Neuro General: patient oriented x3 and no focal motor deficits Speech: No Abnormal speech present Extrem General: Yes no clubbing, cyanosis or edema Psych Appearance: grossly normal Office Procedures EKG Details: EKG shows normal sinus rhythm first-degree AV block with left axis deviation suggestive of left anterior fascicular block with LVH with QS pattern in lead V1 V2 [id number], Complete Assessment & Plan Assessment & Plan (1) Abnormal EKG: Code(s): R94.31 - Abnormal electrocardiogram [ECG] [EKG] Category: Medical Plan: Abnormal EKG in this elderly gentleman with history of hypertension hyperlipidemia with suggestive of possible septal infarct as well as suggestion of possible left ventricular hypertrophy with hypertensive heart disease. Will suggest an echocardiogram to evaluate for the same. Otherwise remains pretty asymptomatic and I do not think he requires any stress testing at this point time. This was discussed with him. I would suggest him to continue his aggressive blood pressure control. Continue current statin therapy with well optimized LDL. If echocardiogram is reasonably within normal limits, advised to continue risk factor modification. Possible can consider doing coronary calcium score given his strong family history although is likely to have coronary calcium buildup, if it is greater than 1000 may benefit from further investigation with coronary angiogram. However given lack of symptoms will monitor clinically. Will follow up in the clinic if need be. Thank you for allowing me to partake in his care Orders: Orders CA echo transthoracic complete Today R94.31 - Abnormal electrocardiogram [ECG] [EKG] Coding Level of Care Code New Pt Level 4 (06729) Complex EM visit Add On G2211 Diagnoses Abnormal EKG R94.31 CPT Codes EKG - CPT: 28400-[id number], Complete ([id number])
[2024-05-22 14:00] VITALS: BP 150/70; PULSE 60; BMI 31.6
== END 2024-05-22 14:51 | disposition home or self-care (01) ==
PROVIDERS: PCP Family Medicine; Visit Provider Internal Medicine Cardiovascular Disease
DX: R94.31 Abnormal electrocardiogram [ECG] [EKG] (principal)
CPT/HCPCS: 93010; 99204

== ENCOUNTER → 2024-05-22 13:25 | Outpatient (BNVA) | payer MEDICARE, SELFPAY | PROVIDERS: PCP Family Medicine; Visit Provider Internal Medicine Cardiovascular Disease | DX: R94.31 Abnormal electrocardiogram [ECG] [EKG] (principal); I44.0 Atrioventricular block, first degree | CPT/HCPCS: 93005 ==

== ENCOUNTER → 2024-06-09 07:52 | Outpatient (REF) | payer BC, SELFPAY ==
--- NOTE | 2024-06-09 07:55 | CA_ITS ---
Transthoracic Echocardiogram Patient (Last, First, Middle): Jez Eduardo, Gender: Male Date of : 1945 Age: 78 Procedure Date: 06/09/2024 Procedure Type: Transthoracic Echocardiogram Location: OP Height: 175.26 cm Weight: 97.52 kg BSA: 2.13 m2 Heart Rate: 59 bpm BP: 120 / 74 mmHg Application Project Leader: SB Referring MD: Tristian Hollis MD Symptoms: R94.31 - Abnormal electrocardiogram [ECG] [EKG] Study Quality: Fair ECG Rhythm: Bradycardia Conclusions: - Normal left ventricular size and systolic function. There is mildly increased left ventricular wall thickness. The visually estimated ejection fraction is between 55-60%. - E/E prime ratio is between 8 and 15 consistent with indeterminate filling pressures. - Mildly increased right ventricular cavity size. There is normal right ventricular systolic function. - The left atrium is mildly dilated. The right atrium is normal in size. - There is mild dilatation of the ascending aorta measuring 4.00 cm. Findings Left Ventricle Normal left ventricular size and systolic function. There is mildly increased left ventricular wall thickness. The visually estimated ejection fraction is between 55-60%. There is no evidence of regional wall motion abnormalities. Abnormal diastolic function is noted. Spectral Doppler is indicative of an impaired relaxation filling pattern. E/E prime ratio is between 8 and 15 consistent with indeterminate filling pressures. There is severe septal asymmetric hypertrophy. Right Ventricle Mildly increased right ventricular cavity size. There is normal right ventricular systolic function. Atria The left atrium is mildly dilated. The right atrium is normal in size. Aortic Valve There is a normal trileaflet aortic valve. There is mild calcification of the aortic valve. There is no aortic valve stenosis. There is no aortic valve regurgitation. Mitral Valve The mitral valve appears normal. There is trace mitral valve regurgitation. There is no mitral valve stenosis. Pulmonic Valve The pulmonic valve is likely normal. Tricuspid Valve Normal tricuspid valve structure. There is trace tricuspid valve regurgitation. Normal right atrial pressure. There is no evidence of pulmonary hypertension. Great Vessels There is mild dilatation of the ascending aorta measuring 4.00 cm. The visualized portions of the pulmonary artery and branches are normal. Venous The inferior vena cava is normal in size and collapses greater than 50% with inspiration. Pericardium/Pleural There is no evidence of pericardial effusion. Prior Study Comparison No prior study available for comparison. Measurements 2D Linear Measurements IVSd: 1.53 0.6-0.9/0.6-1.0 cm LVIDd: 4.84 3.9-5.3/4.2-5.9 cm LVIDd Index: 2.27 2.4-3.2/2.2-3.1 cm/m2 LVIDs: 3.60 2.0-3.6 cm LVPWd: 1.24 0.7-1.1 cm LA Diam: 4.60 2.7-3.8/3.0-4.0 cm LAIDs Index: 2.16 1.5-2.3 cm/m2 LV Mass: 340.42 67-162/88-224 g LV Mass Index: 159.82 43-95/49-115 g/m2 LVOT Diam: 2.20 3.0+(-)1.3 cm 2D Systolic Function EF 4C: 51.00 >55% EF 2C: 64.10 >55% EF BiP: 58.30 >55% Mitral Valve MV Pk E: 0.81 MV PK A: 1.06 MV Decel Time: 159.00 E/A: 0.80 E'Lateral: 6.42 E'Medial: 5.22 E/E' Med: 15.40 E/E' Lat: 12.60 PHT: 47.00 MVA PHT: 4.68 Decel Dent: 5.06 Aortic Valve AoV Pk Oscar: 1.34 AoV Pk Grad: 7.00 CHRISTY: 3.66 LVOT LVOT Pk Oscar: 1.33 LVOT Mn Oscar: 0.91 LVOT VTI: 0.29 LVOT Pk Grad: 7.00 LVOT Mn Grad: 4.00 LVOT Diam: 2.20 LVOT Area: 3.80 Diastolic Function MV Pk E: 0.81 MV Pk A: 1.06 E/A: 0.80 E'Medial: 5.22 E/E' Med: 15.40 E' Laterial: 6.42 E/E' Lat: 12.60 Right Ventricle TAPSE (mm): 28.70 TVS' Oscar: 19.00 Tricuspid Valve TR Pk Oscar: 2.59 TR Pk Grad: 27.00 RA Press: 3.00 RVSP: 30.00 Great Vessels Aorta Sinus of Valsalva: 3.80 2.0-3.5 cm Ao Asc: 4.00 2.1-3.4 cm Ao Arch: 3.70 Pulmonary Veins Pulm Vein S/D 1.50 Pulmonary Valve PV Pk Oscar: 1.33 Peak PV Grad: 7.00 Updated in Other Vendor System with Status of Final Cliff Brito MD electronically signed on 06/11/2024 5:58:32 AM with status of Final
--- OUTSIDE RECORDS SUMMARY | 2024-06-09 07:55 | XMS_ITS | Encounter Summary ---
Author Organization [employer] Address [address] 7 [place] [address] Care Team Providers Care Vegetable Preparer Name Role Phone Cyndie Delaney MD Primary Care Pro vider Reason for Visit * Reason Onset Date Comments July recalls 05/16/2024 Encounter Details Date Type Department Care Team ([facility] st Contact Info) Description 05/16/2024 Telephone [facility] MEDICINE [address] [place] [address] Janina Medina MA July recalls Social History Tobacco Use Types Packs/Day Years Used Date Smoking Tobacco: Never Smokeless Tobacco: Never Alcohol Use Standard Drinks/Week Comments Yes 10 (1 standard drink = 0.6 oz pu re alcohol) 1 beers a day Depression Answer Date Recorded Patient Health Questionnaire-9 Score 0 12/06/2023 Patient Health Questionnaire-9 Score 0 12/06/2023 Last PHQ-9: Questionnaire Data Not on file 0 12/06/2023 Housing Stability Answer Date Recorded What is your housing situation today? I have igor merrill 11/18/[address] you li ve. Do you have problems with any of the following? None of the above 11/18/2023 Food Insecurity Answer Date Recorded Within the past 12 months, y ou worried that your food would run out before you got money to buy more: Never True 11/18/2023 Within the past 12 months,th e food you bought just didn't last and you didn't have enough money to get more: Never True 11/2023 Transportation Answer Date Recorded In the past 12 months, has l ack of transportation kept you from medical appts, meetings, work or from getting things needed for daily living? No 11/18/2023 Utilities Answer Date Recorded In the past 12 months, has t he electric, gas, oil or water company threatened to shut off services in your home? No 11/18/2023 Depression Answer Date Recorded Patient Health Questionnaire-2 Score 0 12/06/2023 Internet Access Answer Date Recorded Internet Access Q1 Yes 12/13/2023 Internet Access Q2 Not on file 12/13/2023 Sex and Gender Information Value Date Recorded Sex Assigned at Male 02/09/2022 10:36 AM EDT Legal Sex Male 10:36 AM EDT Gender Identity Male 02/09/2022 10:36 AM EDT Sexual Orientation Straight 02/09/2022 10 :36 AM EDT documented as of this encounter Miscellaneous Notes * Telephone Encounter - Janina Medina MA - 05/16/2024 9:41 AM EST T/C- Spot Cleaner Left Voice Mail to return call to schedule an appointment. Recall letter sent. Appointment: Office Visit Note: BP and wt Month: July With: Ricardo Please schedule appointment if Patient calls Back. documented in this encounter Plan of Treatment Not on file documented as of this encounter Visit Diagnoses Not on filedocumented in this encounter Additional Health Concerns Assessment Noted Time PHQ-9 Depression Total Score: 0 12/06/19 24 2:32 PM EDT documented as of this encounter Care Teams Vegetable Preparer Relationship Specialty Start Date End Date Cyndie Delaney MD [address] [place] [id number] PCP - General Internal Medicine 09/22/22 documented as of this encounter
--- OUTSIDE RECORDS SUMMARY | 2024-06-09 07:55 | XMS_ITS | Encounter Summary ---
Author Organization [employer] Address [address] [place] [address] [place] [address] Care Team Providers Care Nutrition Services Associate Name Role Phone Cyndie Delaney MD Primary Care Pro vider Reason for Visit * Reason Onset Date Comments Med Refill 01/30/2024 Encounter Details Date Type Department Care Team ([facility] st Contact Info) Description 01/30/2024 Refill [facility] MEDICINE [address] [place] [address] Cyndie Delaney MD [address] [place], [place] [phone] Social History Tobacco Use Types Packs/Day Years [...] your housing situation today? I have igor sing 11/18/[address] you li [...] AM EDT documented as of this encounter Plan of Treatment Not on file documented as of this encounter Visit Diagnoses Not on filedocumented in this encounter Additional Health Concerns Assessment Noted Time PHQ-9 Depression Total Score: 0 12/06/19 24 2:32 PM EDT documented as of this encounter Care Teams Nutrition Services Associate Relationship Specialty Start Date End Date Cyndie Delaney MD [address] [place] [id number] PCP - General Internal Medicine 09/22/22 documented as of this encounter
--- OUTSIDE RECORDS SUMMARY | 2024-06-09 07:55 | XMS_ITS | Encounter Summary ---
Author Organization [employer] Address [address] [place] [address] [place] [address] Care Team Providers Care Metrology Manager Name Role Phone Ofelia New [facility] Primary Care Provider [phone] Cyndie Delaney MD Primary Care Pro vider Reason for Visit * Reason Comments Med Refill Encounter Details Date Type Department Care Team (Late st Contact Info) Description 07/23/2022 Refill [facility] [address] [place] [address] VirgenOfelia [facility] [address] [place], [place] [phone] Primary hypertension Social History Tobacco Use Types Packs/Day Years Used Date Smoking Tobacco: Never Assessed Sex and Gender Information Value Date Recorded Sex Assigned at Male 02/09/2022 10:36 AM EDT Legal Sex Male 10:36 AM EDT Gender Identity Male 02/09/2022 10:36 AM EDT Sexual Orientation Straight 02/09/2022 10 :36 AM EDT documented as of this encounter Plan of Treatment Not on file documented as of this encounter Visit Diagnoses Diagnosis Primary hypertension Unspecified essential hypertension documented in this encounter Care Teams Metrology Manager Relationship Specialty Start Date End Date Ofelia New FNP [address] [place] [id number] PCP - General Family Medicine 03/09/22 09/21/22 Cyndie Delaney MD [address] [place] [id number] PCP - General Internal Medicine 09/22/22 documented as of this encounter
--- OUTSIDE RECORDS SUMMARY | 2024-06-09 07:55 | XMS_ITS | Encounter Summary ---
Author Organization [employer] Address [address] [place] [address] [place] [address] Care Team Providers Care Shake Backboard Notcher Name Role Phone Cyndie Delaney MD Primary Care Pro vider Reason for Visit * Reason Onset Date Comments Med Refill 06/17/2023 Encounter Details Date Type Department Care Team ([facility] st Contact Info) Description 06/17/2023 Telephone [facility] MEDICINE [address] [place] [address] Cyndie Delaney MD [address] [place] [address] Med Refill Social History Tobacco Use Types Packs/Day Years Used Date Smoking Tobacco: Never Smokeless Tobacco: Never Alcohol Use Standard Drinks/Week Comments Yes 10 (1 standard drink = 0.6 oz pu re alcohol) 2 beers a day Depression Answer Date Recorded Patient Health Questionnaire-9 Score 0 11/18/2022 Housing Stability Answer Date Recorded What is your housing situation today? I have igorsahra merrill 02/02/[address] you li ve. Do you have problems with any of the following? None of the above 02/02/2023 Food Insecurity Answer Date Recorded Within the past 12 months, y ou worried that your food would run out before you got money to buy more: Never True 02/02/2023 Within the past 12 months,th e food you bought just didn't last and you didn't have enough money to get more: Never True Transportation Answer Date Recorded In the past 12 months, has l ack of transportation kept you from medical appts, meetings, work or from getting things needed for daily living? No 02/02/2023 Utilities Answer Date Recorded In the past 12 months, has t he electric, gas, oil or water company threatened to shut off services in your home? No 02/02/2023 Depression Answer Date Recorded Patient Health Questionnaire-2 Score 0 11/18/2022 Sex and Gender Information Value Date Recorded Sex Assigned at Male 02/09/2022 10:36 AM EDT Legal Sex Male 10:36 AM EDT Gender Identity Male 02/09/2022 10:36 AM EDT Sexual Orientation Straight 02/09/2022 10 :36 AM EDT documented as of this encounter Miscellaneous Notes * Telephone Encounter - Lisandra Ramires LPN - 06/17/2023 10:43 AM EST Medication pended to PCP. * Telephone Encounter - Rodger Rojas - 06/17/2023 10:33 AM EST TC from pt requesting medication refill. Medications needing refill : atorvastatin (Lipitor) 20 MG tablet To be sent to: [id number] - [place], [place] - [address] [facility] documented in this encounter Plan of Treatment Not on file documented as of this encounter Visit Diagnoses Not on filedocumented in this encounter Additional Health Concerns Assessment Noted Time PHQ-9 Depression Total Score: 0 11/19/19 10:58 AM EDT documented as of this encounter Care Teams Shake Backboard Notcher Relationship Specialty Start Date End Date Cyndie Delaney MD [address] [place] [phone] PCP - General Internal Medicine 09/22/22 documented as of this encounter
--- OUTSIDE RECORDS SUMMARY | 2024-06-09 07:55 | XMS_ITS | Clinical Summary ---
Author Organization [employer] Address [address] [place] [address] 7 [place] [address] Care Team Providers Care Intercell Connector Placer Name Role Phone Cyndie Delaney MD Primary Care Pro vider Allergies Active Allergy Reactions Criticality Noted Date Comments Tetracycline Rash Low 11/18/2022 Medications melatonin 3 MG tablet Take by mouth. Active hydroCHLOROthiaz ez (HYDRODiuril) 25 MG tabletIndication s:Primary hypertension TAKE 1 TABLET BY MOUTH IN THE MORNING 100 tablet 2 08/05/19 24 Active lisinopril 20 MG tabletIndication s:Primary hypertension TAKE 1 TABLET BY MOUTH DAILY IN THE MORNING 100 tablet 2 08/05/19 24 Active zolpidem (Ambien) 10 MG tabletIndication s:Insomnia, unspecified type Take 1 tablet (10 mg) by mouth at bedtime. 15 tablet 12/06/19 24 Active clonazePAM (KlonoPIN) 0.5 MG tabletIndication s:Anxiety TAKE 1 TABLET BY MOUTH EVERY DAY NEEDED FOR ACUTE ANXIETY 15 tablet 12/06/19 24 Active atorvastatin (Lipitor) 20 MG tablet TAKE 1 TABLET(20 MG) BY MOUTH DAILY 90 tablet 05/23/19 25 Active atorvastatin (Lipitor) 20 MG tablet TAKE 1 TABLET(20 MG) BY MOUTH DAILY 90 tablet 01/26/20 24 025 Discontinued Active Problems Problem Noted Date Diagnosed Date Abnormal EKG 12/06/2023 Chronic left shoulder pain 06/18/2023 Assessment & Plan (06/18/2023 2:41 PM EST): Patient will continue doing exercises for his shoulders He will continue with PRN acetaminophen, local Voltaren and patches Referral for orthopedics is in Health care maintenance 11/19/2022 Renal cyst 11/19/2022 Left foot pain 11/19/2022 Insomnia 11/19/2022 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 (11/19/2022): 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 Surgery with plate in L ankle COVID 04/22/2022 09/19/2022 Assessment & Plan (04/22/2022 5:54 PM EST): Symptoms started 2 days ago, tested positive for covid, denied shortness of breath. Complains of congestion, cough, sore throat, but refers symptoms have been improving. Offered Paxlovid but patient refused, risk discussed, told paxlovid has 5 day window to be started, he agree and will call in case of worsening symptoms Acute cough 04/22/2022 09/17/2022 Nasal congestion 04/22/2022 09/19/2022 Encounters Date Type Department Care Team Description 05/22/2024 Refill [facility] MEDICINE [address] [place] [phone] Cyndie Delaney MD 05/16/2024 Telephone [facility] MEDICINE [address] [place] [address] Cyndie Delaney MD FYI 05/16/2024 Telephone [facility] MEDICINE [address] [place] [address] Janina Medina MA July recalls 04/06/2024 Refill [facility] MEDICINE [address] [place] [address] Cyndie Delaney MD Primary hypertension 03/20/2024 Telephone [facility] MEDICINE [address] [place] [address] Cyndie Delaney MD 03/20/2024 Travel 03/20/[address] [address] Janina Medina [place] Appointment 03/17/2024 Telephone [facility] [address] [place] [address] Janina Medina MA chart prep from Last 3 Months Immunizations Name Administration Dates Next Due Influenza High-dose Quadriva lent Preservative Free 01/10/2023,01/08/2022,01/06/2021 Influenza injectable quadriv alent preservative free 01/29/2020 Influenza, High Dose Seasona l, Preservative Free 02/04/2018,03/09/2017,01/16/2016 Influenza, seasonal, injecta ble, preservative free 01/03/2024 Pfizer Covid-19 Vaccine 12+ 01/03/2024 Pneumococcal Conjugate PCV 20 12/21/2022 RSV Bivalent 02/19/2023 TD (adult), 2 Lf tetanus tox oid, preservative free, adsorbed 10/22/2018 Zoster, Recombinant 04/30/2023,02/26/2023 Family History Medical History Relation Name Comments Heart failure Father colon cancer 75 Father Breast cancer Mother 2nd sister uterine cancer 65 Sister Skin cancer Sister DM2 Son Relation Name Status Comments Father Mother Sister Son Social History Tobacco Use Types Packs/Day Years Used Date Smoking Tobacco: Never Smokeless Tobacco: Never Tobacco Cessation:Counseling Given: Not Answered Alcohol Use Standard Drinks/Week Comments Yes 10 [...] Orientation Straight 02/09/2022 10 :36 AM EDT Last Filed Vital Signs Vital Sign Reading Time Taken Comments Blood Pressure 145/77 12/06/2023 2:32 PM EDT Pulse 58 12/06/2023 2:32 PM EDT Temperature 36 ??C (96.8 ??F) 12/06/2023 2:32 PM EDT Respiratory Rate 20 12/06/2023 2:32 PM EDT Oxygen Saturation 98% 12/06/2023 2:32 PM EDT Inhaled Oxygen Concentration - - Weight 100 kg (221 lb 6.4 oz) 12/06/2023 2:32 PM EDT Height 175.3 cm (5' 9 ) 12/06/2023 2:32 PM EDT Body Mass Index 32.7 12/06/2023 2:32 PM EDT Plan of Treatment Health Maintenance Due Date Last Done Comments Alcohol/Substance Use Screening 1957 DTaP/Tdap/Td Vaccines (1 - Tdap) 10/23/2018 10/22/2018 SDOH Screening 11/17/2024 11/18/2023 Depression Screening 12/05/2024 12/06/2023, 12/06/19 24 Tobacco Screening 12/05/2024 12/06/2023 Lipid Panel 01/19/2029 01/20/2024, 12/0 10/2022, 11/25/2022, Additional history exists Hepatitis C Screening Completed 11/25/2022 Pneumococcal Vaccine: 50+ Years Completed 12/21/2022 RSV Patients and Patients Aged 60 years or older Completed 02/19/2023 Zoster Vaccines Completed 04/30/2023, 02/26/2023 COVID-19 Vaccine Completed 01/03/2024, , 01/10/2023, Additional history exists Influenza Vaccine Completed 01/03/2024, , 01/08/2022, Additional history exists HIB Vaccines Aged Out No longer eligi ble based on patient's age to complete this topic HPV Vaccines Aged Out No longer eligi ble based on patient's age to complete this topic Hepatitis A Vaccines Aged Out No long er eligible based on patient's age to complete this topic Hepatitis B Vaccines Aged Out No long er eligible based on patient's age to complete this topic IPV Vaccines Aged Out No longer eligi ble based on patient's age to complete this topic Meningococcal Vaccine Aged Out No devonte stephanie eligible based on patient's age to complete this topic RSV under 20 months Aged Out No longe r eligible based on patient's age to complete this topic Rotavirus Vaccines Aged Out No longer eligible based on patient's age to complete this topic Procedures Procedure Name Priority Date/Time Associated Diagnosis Comments LIPID PANEL, STANDARD Routine 01/20/2024 8:40 AM EDT Annual physical exam HEPATITIS C ANTIBODY REFLEX Routine 11/25/2022 8:59 AM EDT COVID-19 from Last 3 Months or Most Recently Relevant to Health Maintenance Results * (ABNORMAL) Lipid Panel, Standard (01/20/2024 8:40 AM EDT) Triglycerides 115 <150 mg/dL [facility] Comment:Desirable Triglyceri de: less than 150 mg/dLBorderline High Triglyceride 150-199 mg/dLHigh Triglyceride: 200-499 mg/dLVery High Triglyceride: greater than or equal to 5OO mg/dL Cholesterol 127 <200 mg/dL [facility] Comment:Desirable Cholestero l: less than 200 mg/dLBorderline High Cholesterol: 200-239 mg/dLHigh Cholesterol: greater than 239 mg/dL LDL Cholesterol Calculated 68 <100 mg/dL [facility] Comment:Desirable LDL: less than 100 mg/dLNear Optimal/Above Optimal LDL: 110- 129 mg/dLBorderline High LDL: 130-159 mg/dLHigh LDL: 160-189 mg/dLVery High LDL: greater than or equal to 190 mg/dL HDL Cholesterol 36(L) >40 mg/dL [facility] Comment:Desirable HDL: great er than 40 mg/dL Note: This HDL assay may give artificially low results in patients with liver disease. Blood Venous blood specimen / Unknown 01/20/2024 8:40 AM EDT 01/20/2024 11:20 AM EDT us Cyndie Marr MD LAB BLOOD ORDERAB LES Final Result [facility] [address] [place] [phone] * Hepatitis C Antibody Reflex (11/25/2022 8:59 AM EDT) Hepatitis C Antibody Nonreactive Nonreactive [facility] Comment:Antibodies to HCV no t detected; does not exclude early acuteHCV infection. 11/25/2022 8:59 AM EDT 11/25/2022 11:13 AM EDT Cyndie Marr MD LAB BLOOD ORDERAB LES Final Result [facility] [address] [place] [phone] from Last 3 Months or Most Recently Relevant to Health Maintenance Insurance [facility] MEDICARE ADVANTAGE HMO Care Teams Intercell Connector Placer Relationship Specialty Start Date End Date Cyndie Delaney MD [address] [place] [phone] PCP - General Internal Medicine 09/22/22
--- OUTSIDE RECORDS SUMMARY | 2024-06-09 07:55 | XMS_ITS | Encounter Summary ---
Author Organization [employer] Address [address] [place] [address] [place] [address] Care Team Providers Care Crop Roller Name Role Phone Cyndie Delaney MD Primary Care Pro vider Reason for Visit * Reason Comments Med Refill Encounter Details Date Type Department Care Team ([facility] st Contact Info) Description 05/22/2024 Refill [facility] MEDICINE [address] [place], [place] [phone] Cyndie Delaney MD [address] [place], [place] [phone] Social History Tobacco Use Types Packs/Day Years [...] documented as of this encounter Care Teams Crop Roller Relationship Specialty Start Date End Date Cyndie Delaney MD [address] [place] [phone] PCP - General Internal Medicine 09/22/22 documented as of this encounter
--- OUTSIDE RECORDS SUMMARY | 2024-06-09 07:55 | XMS_ITS | Encounter Summary ---
Author Organization [employer] Address [address] [place] [phone] Care Team Providers Care Audio Specialist Name Role Phone Cyndie Delaney MD Primary Care Pro vider Reason for Visit * Reason Onset Date Comments FYI 05/16/2024 Encounter Details Date Type Department Care Team ([facility] st Contact Info) Description 05/16/2024 Telephone [facility] MEDICINE [address] [place], [place] [phone] Cyndie Delaney MD [address] [place] [address] FY Social History Tobacco Use Types Packs/Day Years [...] encounter Miscellaneous Notes * Telephone Encounter - Delores Ramos RN - 05/16/2024 1:09 PM EST Called pt who stated that he had change in insurance and is going to a new practice. He reports already having gone to medical records to fill out records request. He states he was very happy with [facility] and the health system. Left practice filled out and placed in bin to go to Medical Records. * Telephone Encounter - Yunier Chacon - 05/16/2024 11:12 AM EST Tc from pt stating that they had changed from health insurance and will no longer be using the [facility]. documented in this encounter Plan of Treatment Not on file documented as of this encounter Visit Diagnoses Not on filedocumented in this encounter Additional Health Concerns Assessment Noted Time PHQ-9 Depression Total Score: 0 12/06/19 24 2:32 PM EDT documented as of this encounter Care Teams Audio Specialist Relationship Specialty Start Date End Date Cyndie Delaney MD [address] [place] [phone] PCP - General Internal Medicine 09/22/22 documented as of this encounter
--- OUTSIDE RECORDS SUMMARY | 2024-06-09 07:55 | XMS_ITS | Encounter Summary ---
Author Organization [employer] Address [address] [place] [address] [place] [address] Care Team Providers Care Program Manager Slp Name Role Phone Cyndie Delaney MD Primary Care Pro vider Reason for Visit * Reason Comments Med Refill Encounter Details Date Type Department Care Team ([facility] st Contact Info) Description 04/06/2024 Refill [facility] MEDICINE [address] [place], [place] [phone] Cyndie Delaney MD [address] [place], [place] [phone] Primary hypertension Social History Tobacco Use Types [...] Unspecified essential hypertension documented in this encounter Additional Health Concerns Assessment Noted Time PHQ-9 Depression Total Score: 0 12/06/19 24 2:32 PM EDT documented as of this encounter Care Teams Program Manager Slp Relationship Specialty Start Date End Date Cyndie Delaney MD [address] [place] [phone] PCP - General Internal Medicine 09/22/22 documented as of this encounter
== END ==
LOC: HO.CARD 07:52
PROVIDERS: PCP Nurse Practitioner Family; Visit Provider Internal Medicine Cardiovascular Disease
DX: R94.31 Abnormal electrocardiogram [ECG] [EKG] (principal)
CPT/HCPCS: 93306

== ENCOUNTER → 2024-06-09 07:55 | Outpatient (BNV) | payer BC, SELFPAY | PROVIDERS: PCP Nurse Practitioner Family; Visit Provider Internal Medicine Cardiovascular Disease | DX: I35.1 Nonrheumatic aortic (valve) insufficiency (principal) | CPT/HCPCS: 93306 ==

== ENCOUNTER 2025-01-04 13:12 | Outpatient (AMB) | payer BC, SELFPAY ==
--- NOTE | 2025-01-04 14:35 | A.OFFVIS_ITS ---
Intake Visit Reasons: elevated psa Intake Note: Patient is present for elevated psa Urology Medication:NONE Antibiotic Allergy:NONE Blood Thinner:NONE LABS PSA : 9.0 Electric Fan Assembler Required: No Accompanied by: Self / Same As Patient Allergies Tetracyclines (TETRACYCLINES) Allergy (Mild, Verified 01/04/25 14:36) RASH HPI Comments Details: Jez is a pleasant male. He is a patient of Dr. Armenta. He is seen for the following urologic conditions - complex renal cyst - elevated PSA Prostate check today Very large on KEI Plan prostate MRI to confirm lack of suspicious areas Elevated PSA PSA 9 KEI 3+ no nodules Prostate MRI Complex renal cyst - nephrolithiasis Initially diagnosed at [facility] 2014 Has been followed with yearly ultrasounds Was not able to get 1 in the past 2 years Here today with prior imaging documentation Imaging - 07/31 [facility] bilateral renal cysts 5.7 cm, 2.5 cm on right, between 1.5 and 3.5 cm on left. Right cyst with septation - 08/31 bilateral ultrasound with bilateral renal cysts simple in nature, 5 mm stone left side - 12/03 bilateral ultrasound renal cysts stable no stone Discussion today regarding natural history of renal cyst Continue with surveillance imaging for stone [facility] Medical History History of Mohs micrographic surgery for skin cancer Renal cyst History of tennis elbow Shingles Skin cancer Osteoarthritis Fatty liver ANTONY (obstructive sleep apnea) Rheumatic fever HLD (hyperlipidemia) HTN (hypertension) Surgical History Hx of umbilical hernia repair H/O colonoscopy History of ankle surgery Family History Father CAD (coronary artery disease) CHF (congestive heart failure) Mother Breast cancer Paternal Uncle CAD (coronary artery disease) Social History Are you a primary rn progressive care to a significant other at home: No Do you presently have visiting nurse or other home services: No Patient Tobacco Use Status: Never used Tobacco Advance Directives Date on File: 02/08/20 Review of Systems Const Denies chills and Denies fever(s) Card Reports no additional complaints and Denies syncope Resp Denies cough GI Denies abdominal pain and Denies heartburn Reports as per HPI and Denies change in libido Neuro Denies syncope Psych Denies change in libido Endo Denies change in libido Physical Exam Const General: cooperative, healthy appearing, comfortable and no acute distress Orientation/consciousness: patient oriented x3 HEENT Face and sinus: Yes normal facial exam Mouth: moist mucous membranes Neck Neck: Yes normal visual inspection, Yes full ROM and Yes trachea midline Chest Chest palpation & inspection: normal inspection of the chest Resp Effort & Inspection: normal respiratory effort, able to speak in complete sentences and no respiratory distress GI Inspection: Yes normal to inspection Rectal Exam - Male: Yes normal sphincter tone and Yes prostate normal Male General Exam: Yes normal external exam Penis: normal penis and circumcised Meatus: meatus normal Scrotum: scrotum normal Testes: Testes normal Back/Spine/Pelvis Cervical Spine: normal cervical lordosis Thoracic/Lumbar Spine: thoracic and lumbar spine normal to inspection Skin General skin exam: no rashes or lesions noted Neuro General: patient oriented x3, gait normal, tone normal and moves all extremities Extrem General: Yes normal to inspection and Yes capillary refill normal Assessment & Plan Assessment & Plan (1) Prostate nodule: Code(s): N40.2 - Nodular prostate without lower urinary tract symptoms Category: Medical (2) Elevated PSA: Code(s): R97.20 - Elevated prostate specific antigen [PSA] Category: Medical Plan Prostate MRI Orders: Orders MR Prostate wo/w con Today N40.2 - Nodular prostate without lower urinary tract symptoms Patient Instructions: This note is constructed using voice recognition software. While every effort has been made to ensure accuracy pathology secretary/transcriptionist errors may have been included. Imaging studies, laboratory and physical exam results were discussed and reviewed in detail. No major barriers to patient understanding were identified. An opportunity to ask questions regarding the treatment plan was provided. All questions were answered. The patient expressed understanding and agreement with the above treatment plan. The patient is aware they should contact our office by phone for worsening of their current condition or the appearance of new urologic symptoms. Compliance is encouraged with any medications and followup testing that is ordered. It is a privilege to participate in the urologic care of your patient. If you have any questions or concerns regarding treatment for the above conditions, or other urologic issues, please do not hesitate to contact me. The office telephone contact is [phone]. Sincerely, Dr Aditya Varela MD, [facility] - Urology Compassionate Specialist Care for the Genitourinary System Coding Level of Care Code Est Pt Level 3 (65190) Diagnoses Prostate nodule N40.2 Elevated PSA R97.20
--- OUTSIDE RECORDS SUMMARY | 2025-01-04 17:52 | XMS_ITS | Clinical Summary ---
Author Organization [employer] Address [address] [place] [address] 7 [place] [address] Care Team Providers Care Consulting Psychiatrist Name Role Phone Unavailable Primary Care Provider Unavailabl e Allergies Active Allergy Reactions Criticality Noted Date Comments Tetracycline Rash Low 11/18/2022 Medications melatonin 3 MG tablet Take by mouth. Active hydroCHLOROthiazi de (HYDRODiuril) 25 MG tabletIndications :Primary hypertension TAKE 1 TABLET BY MOUTH IN THE MORNING 100 tablet 2 4 Active lisinopril 20 MG tabletIndications :Primary hypertension TAKE 1 TABLET BY MOUTH DAILY IN THE MORNING 100 tablet 2 4 Active zolpidem (Ambien) 10 MG tabletIndications :Insomnia, unspecified type Take 1 tablet (10 mg) by mouth at bedtime. 15 tablet 4 Active clonazePAM (KlonoPIN) 0.5 MG tabletIndications :Anxiety TAKE 1 TABLET BY MOUTH EVERY DAY NEEDED FOR ACUTE ANXIETY 15 tablet 4 Active atorvastatin (Lipitor) 20 MG tablet TAKE 1 TABLET(20 MG) BY MOUTH DAILY 90 tablet 5 Active Active Problems Problem Noted Date Diagnosed Date [...] cough 04/22/2022 09/17/2022 Nasal congestion 04/22/2022 09/19/2022 Immunizations Immunization Administration Dates Next Due Influenza High-dose Quadriva [...] 58 12/06/2023 2:32 PM EDT Temperature 36 C (96.8 F) 12/06/2023 2:32 PM EDT Respiratory Rate 20 [...] 12/06/2023, 12/06/19 24 Tobacco Screening 12/05/2024 12/06/2023 COVID-19 Vaccine ( season) 2024 01/03/2024, 06/23/2023, 01/10/2023, Additional history exists Influenza Vaccine (#1) 2024 , 01/10/2023, 01/08/2022, Additional history exists Lipid Panel 01/19/2029 01/20/2024, 12/0 10/2022, 11/25/2022, Additional history exists Hepatitis C Screening Completed 11/25/2022 Pneumococcal Vaccine: 50+ Years Completed 12/21/2022 RSV Patients and Patients Aged 60 years or older Completed 02/19/2023 Zoster Vaccines Completed 04/30/2023, 02/26/2023 HIB Vaccines Aged Out No longer eligi [...] patient's age to complete this topic Meningococcal B Vaccine Aged Out No l onger eligible based on patient's age to complete [...] 8:40 AM EDT) Triglycerides 115 <150 mg/dL [facility] Comment:Desirable Triglyceri de: less than 150 mg/dLBorderline High Triglyceride 150-199 mg/dLHigh Triglyceride: 200-499 mg/dLVery High Triglyceride: greater than or equal to 5OO mg/dL Cholesterol 127 <200 mg/dL [facility] Comment:Desirable Cholestero l: less than 200 mg/dLBorderline High Cholesterol: 200-239 mg/dLHigh Cholesterol: greater than 239 mg/dL LDL Cholesterol Calculated 68 <100 mg/dL [facility] Comment:Desirable LDL: less than 100 mg/dLNear Optimal/Above Optimal LDL: 110- 129 mg/dLBorderline High LDL: 130-159 mg/dLHigh LDL: 160-189 mg/dLVery High LDL: greater than or equal to 190 mg/dL HDL Cholesterol 36(L) >40 mg/dL [facility] Comment:Desirable HDL: great er than 40 mg/dL Note: This HDL assay may give artificially low results in patients with liver disease. Blood Venous blood specimen / Unknown 01/20/2024 8:40 AM EDT 01/20/2024 11:20 AM EDT us Cyndie Marr MD LAB BLOOD ORDERAB LES Final Result Performing Organization Address [facility] Co de Phone Number [facility] [address] [place] [address] [phone] * Hepatitis C Antibody Reflex (11/25/2022 8:59 AM EDT) Hepatitis C Antibody Nonreactive Nonreactive [facility] Comment:Antibodies to HCV no t detected; does not exclude early acuteHCV infection. 11/25/2022 8:59 AM EDT 11/25/2022 11:13 AM EDT us Cyndie Marr MD LAB BLOOD ORDERAB LES Final Result Performing Organization Address [facility] de Phone Number [facility] [address] [place] [address] [phone] from Last 3 Months or Most Recently Relevant to Health Maintenance Insurance [facility] MEDICARE ADVANTAGE HMO
--- OUTSIDE RECORDS SUMMARY | 2025-01-04 17:52 | XMS_ITS | Encounter Summary ---
Author Organization [employer] Address [address] [place] [address] [place] [address] Care Team Providers Care Television Presenter Name Role Phone Cyndie Delaney MD Primary Care Pro vider Reason for Visit * Reason Onset Date Comments Med Refill 06/17/2023 Encounter Details Date Type Department Care Team ([facility] st Contact Info) Description 06/17/2023 Telephone [facility] MEDICINE [address] [place] [address] Cyndie Delaney MD [address] [place] [address] Med Refill Social History Tobacco Use Types Packs/Day Years Used Date Smoking Tobacco: Never Smokeless Tobacco: Never Alcohol Use Standard Drinks/Week Comments Yes 10 (1 standard drink = 0.6 oz pu re alcohol) 2 beers a day Depression Answer Date Recorded Patient Health Questionnaire-9 Score 0 11/18/2022 Housing Stability Answer Date Recorded What is your housing situation today? I have igor merrill 02/02/[address] [...] 20 MG tablet To be sent to: [id number] [place] [address] [facility] [place] documented in this encounter Plan of Treatment Not on file documented as of this encounter Visit Diagnoses Not on filedocumented in this encounter Additional Health Concerns Assessment Noted Time PHQ-9 Depression Total Score: 0 11/19/19 10:58 AM EDT documented as of this encounter Care Teams Television Presenter Relationship Specialty Start Date End Date Cyndie Delaney MD [address] [place] [id number] PCP - General Internal Medicine 09/22/22 06/13/24 documented as of this encounter
--- OUTSIDE RECORDS SUMMARY | 2025-01-04 17:52 | XMS_ITS | Encounter Summary ---
Author Organization [employer] Address [address] [place] [address] [place] [address] Care Team Providers Care Valet Manager Name Role Phone Cyndie Delaney MD Primary Care Pro vider Reason for Visit * Reason Onset Date Comments Med Refill 01/30/2024 Encounter Details Date Type Department Care Team ([facility] st Contact Info) Description 01/30/2024 Refill [facility] MEDICINE [address] [place] [address] Cyndie Delaney MD [address] [place] [address] Social History Tobacco Use Types Packs/Day Years [...] housing situation today? I have igorsahra merrill 11/18/[address] you [...] documented as of this encounter Care Teams Valet Manager Relationship Specialty Start Date End Date Cyndie Delaney MD [address] [place] [address] PCP - General Internal Medicine 09/22/22 06/13/24 documented as of this encounter
--- OUTSIDE RECORDS SUMMARY | 2025-01-04 17:52 | XMS_ITS | Encounter Summary ---
Author Organization [employer] Address [address] [place] [address] [place] [address] Care Team Providers Care Rail Car Painter/Sandblaster Name Role Phone Cyndie Delaney MD Primary Care Pro vider Reason for Visit * Reason Comments Med Refill Encounter Details Date Type Department Care Team ([facility] st Contact Info) Description 04/06/2024 Refill [facility] MEDICINE [address] [place] [address] Cyndie Delaney MD [address] [place] [address] Primary hypertension Social History Tobacco Use Types [...] documented as of this encounter Care Teams Rail Car Painter/Sandblaster Relationship Specialty Start Date End Date Cyndie Delaney MD [address] [place] [id number] PCP - General Internal Medicine 09/22/22 06/13/24 documented as of this encounter
--- OUTSIDE RECORDS SUMMARY | 2025-01-04 17:52 | XMS_ITS | Encounter Summary ---
Author Organization [employer] Address [address] [place] [address] Care Team Providers Care Record Press Tender Name Role Phone Ofelia New [facility] Primary Care Provider [phone] Cyndie Delaney MD Primary Care Pro vider Reason for Visit * Reason Comments Med Refill Encounter Details Date Type Department Care Team (Late st Contact Info) Description 07/23/2022 Refill [facility]INE [address] [place] [address] Ofelia New [facility] [address] [place] [address] Primary hypertension Social History Tobacco Use Types [...] hypertension documented in this encounter Care Teams Record Press Tender Relationship Specialty Start Date End Date Ofelia New FNP [address] [place] [address] PCP - General Family Medicine 03/09/22 09/21/22 Cyndie Delaney MD [address] [place] [id number] PCP - General Internal Medicine 09/22/22 06/13/24 documented as of this encounter
== END 2025-01-04 15:27 | disposition home or self-care (01) ==
LOC: HO.HUSH 13:12
PROVIDERS: PCP Nurse Practitioner Family; Visit Provider Urology
DX: N40.2 Nodular prostate without lower urinary tract symptoms (principal); R97.20 Elevated prostate specific antigen [PSA]
CPT/HCPCS: 99213

== ENCOUNTER 2025-02-12 08:53 | Outpatient (REF) | payer BC, SELFPAY ==
--- NOTE | ~2025-02-12 | MR_ITS ---
EXAMINATION: MR PROSTATE WITHOUT THEN WITH IV CONTRAST, MR EXAM UNLISTED HISTORY: N40.2 - Nodular prostate without lower urinary tract symptoms TECHNIQUE: 1.5T body coil survey of the pelvis was performed. Phase array coil imaging of the prostate was performed in multiplanar high resolution axial, coronal, sagittal fast spin echo T2 and axial T1 weighted imaging sequences. Axial diffusion imaging at intermediate and high field performed with ADC mapping. Next, 10 mL Gadavist was given by intravenous infusion, and dynamic axial imaging performed. 3-D reconstructions and post-processing were performed on an independent workstation by the radiologist for biopsy planning using image fusion. COMPARISON: There are no prior studies available for comparison. CLINICAL DATA: Most recent PSA: 9 ng/mL. PSA Density: 0.17 ng/mL squared Prostate Biopsy: None reported FINDINGS: Prostate size: 4.7 x 5.4 x 4.0 cm. Calculated prostate volume is 52.8 mL. Hemorrhage: None. Transitional Zone: There is moderate heterogeneous nodular hypertrophy of the transitional zone. Peripheral Zone: Diffusion-weighted images are mildly degraded by artifact from gas in the rectum. There is an area of interest in the peripheral zone as described below: Area of interest #1: Location: Left posterolateral peripheral zone in the mid gland (series 7, images 16-17). DWI PI-RADS v2.1 score: 3 T2 PI-RADS v2.1 score: 3 DCE PI-RADS v2.1 score: + Overall PI-RADS v2.1 score: 4 Capsular contact: yes Extracapsular extension: None Seminal vesicle invasion: None Neurovascular bundle involvement: None Seminal Vesicles/Ejaculatory Ducts: Symmetric and normal in signal and caliber. Pelvic Lymph Nodes: No obturator or internal iliac lymph nodes meeting size criteria for adenopathy. Marrow Signal: Normal marrow signal and enhancement without focal lesion identified. MR/MR Prostate wo/w con IMPRESSION: Focus of abnormal signal intensity in the left posterolateral peripheral zone in the mid gland as described, suspicious for clinically significant prostate carcinoma. PI-RADS 4: High (clinically significant cancer is likely to be present) PI-RADS Assessment Categories PI-RADS 1: Very low (clinically significant cancer is highly unlikely to be present) PI-RADS 2: Low (clinically significant cancer is unlikely to be present) PI-RADS 3: Intermediate (the presence of clinically significant cancer is equivocal) PI-RADS 4: High (clinically significant cancer is likely to be present) PI-RADS 5: Very high (clinically significant cancer is highly likely to be present) [employer]. MR Prostate Imaging Reporting and Data System version 2.1. [email or web address] Electronically signed by: Luis Armando Sharp MD 02/12/2025 10:54 AM [facility]
--- NOTE | ~2025-02-12 | MR_ITS ---
EXAMINATION: MR PROSTATE WITHOUT THEN WITH IV CONTRAST, MR EXAM UNLISTED HISTORY: N40.2 - Nodular prostate without lower urinary tract symptoms TECHNIQUE: 1.5T body coil survey of the pelvis was performed. Phase array coil imaging of the prostate was performed in multiplanar high resolution axial, coronal, sagittal fast spin echo T2 and axial T1 weighted imaging sequences. Axial diffusion imaging at intermediate and high field performed with ADC mapping. Next, 10 mL Gadavist was given by intravenous infusion, and dynamic axial imaging performed. 3-D reconstructions and post-processing were performed on an independent workstation by the radiologist for biopsy planning using image fusion. COMPARISON: There are no prior studies available for comparison. CLINICAL DATA: Most recent PSA: 9 ng/mL. PSA Density: 0.17 ng/mL squared Prostate Biopsy: None reported FINDINGS: Prostate size: 4.7 x 5.4 x 4.0 cm. Calculated prostate volume is 52.8 mL. Hemorrhage: None. Transitional Zone: There is moderate heterogeneous nodular hypertrophy of the transitional zone. Peripheral Zone: Diffusion-weighted images are mildly degraded by artifact from gas in the rectum. There is an area of interest in the peripheral zone as described below: Area of interest #1: Location: Left posterolateral peripheral zone in the mid gland (series 7, images 16-17). DWI PI-RADS v2.1 score: 3 T2 PI-RADS v2.1 score: 3 DCE PI-RADS v2.1 score: + Overall PI-RADS v2.1 score: 4 Capsular contact: yes Extracapsular extension: None Seminal vesicle invasion: None Neurovascular bundle involvement: None Seminal Vesicles/Ejaculatory Ducts: Symmetric and normal in signal and caliber. Pelvic Lymph Nodes: No obturator or internal iliac lymph nodes meeting size criteria for adenopathy. Marrow Signal: Normal marrow signal and enhancement without focal lesion identified. MR/MR CAD IMPRESSION: Focus of abnormal signal intensity in the left posterolateral peripheral zone in the mid gland as described, suspicious for clinically significant prostate carcinoma. PI-RADS 4: High (clinically significant cancer is likely to be present) PI-RADS Assessment Categories PI-RADS 1: Very low (clinically significant cancer is highly unlikely to be present) PI-RADS 2: Low (clinically significant cancer is unlikely to be present) PI-RADS 3: Intermediate (the presence of clinically significant cancer is equivocal) PI-RADS 4: High (clinically significant cancer is likely to be present) PI-RADS 5: Very high (clinically significant cancer is highly likely to be present) [employer]. MR Prostate Imaging Reporting and Data System version 2.1. [email or web address].org/Quality-Safety/Resources/PIRADS/ Electronically signed by: Luis Armando Sharp MD 02/12/2025 10:54 AM [facility] [place]
--- OUTSIDE RECORDS SUMMARY | 2025-02-12 09:31 | XMS_ITS | Encounter Summary ---
Author Organization [employer] Address [address] [place] [address] [place] [address] Care Team Providers Care Washing Machine Operator Name Role Phone Cyndie Delaney MD Primary Care Pro vider Reason for Visit * Reason Onset Date Comments Med Refill 06/17/2023 Encounter Details Date Type Department Care Team ([facility] st Contact Info) Description 06/17/2023 Telephone [facility] MEDICINE [address] [place] [address] Cydnie Delaney MD [address] [place] [address] Med Refill Social History Tobacco Use Types [...] 20 MG tablet To be sent to: [id number] [place] [id number] [facility] [place] documented in this encounter Plan of Treatment Not on file documented as of this encounter Visit Diagnoses Not on filedocumented in this encounter Additional Health Concerns Assessment Noted Time PHQ-9 Depression Total Score: 0 11/19/19 10:58 AM EDT documented as of this encounter Care Teams Washing Machine Operator Relationship Specialty Start Date End Date Cyndie Delaney MD [address] [place] [id number] PCP - General Internal Medicine 09/22/22 06/13/24 documented as of this encounter
--- OUTSIDE RECORDS SUMMARY | 2025-02-12 09:31 | XMS_ITS | Clinical Summary ---
Author Organization [employer] Address [address] [place] [address] 7 [place] [address] Care Team Providers Care Surgery Assistant Name Role Phone Unavailable Primary Care Provider [...] 8:40 AM EDT) Triglycerides 115 <150 mg/dL [facility] Comment:Desirable Triglyceri de: less than 150 mg/dLBorderline High Triglyceride 150-199 mg/dLHigh Triglyceride: 200-499 mg/dLVery High Triglyceride: greater than or equal to 5OO mg/dL Cholesterol 127 <200 mg/dL [facility] Comment:Desirable Cholestero l: less than 200 mg/dLBorderline High Cholesterol: 200-239 mg/dLHigh Cholesterol: greater than 239 mg/dL LDL Cholesterol Calculated 68 <100 mg/dL [facility] Comment:Desirable LDL: less than 100 mg/dLNear Optimal/Above Optimal LDL: 110- 129 mg/dLBorderline High LDL: 130-159 mg/dLHigh LDL: 160-189 mg/dLVery High LDL: greater than or equal to 190 mg/dL HDL Cholesterol 36(L) >40 mg/dL [facility] Comment:Desirable HDL: great er than 40 mg/dL Note: This HDL assay may give artificially low results in patients with liver disease. Blood Venous blood specimen / Unknown 01/20/2024 8:40 AM EDT 01/20/2024 11:20 AM EDT us Cyndie Marr MD LAB BLOOD ORDERAB LES Final Result Performing Organization Address [facility] Co de Phone Number [facility] [address] [place] [address] [phone] * Hepatitis C Antibody Reflex (11/25/2022 8:59 AM EDT) Hepatitis C Antibody Nonreactive Nonreactive [facility] Comment:Antibodies to HCV no t detected; does not exclude early acuteHCV infection. 11/25/2022 8:59 AM EDT 11/25/2022 11:13 AM EDT us Cyndie Marr MD LAB BLOOD ORDERAB LES Final Result Performing Organization Address [facility] de Phone Number [facility] [address] [place] [address] [phone] from Last 3 Months or Most Recently Relevant to Health Maintenance Insurance [facility] MEDICARE ADVANTAGE HMO
--- OUTSIDE RECORDS SUMMARY | 2025-02-12 09:31 | XMS_ITS | Encounter Summary ---
Author Organization [employer] Address [address] [place] [address] [place] [address] Care Team Providers Care Coding Auditor Name Role Phone Cyndie Delaney MD Primary Care Pro vider Reason for Visit * Reason Comments Med Refill Encounter Details Date Type Department Care Team ([facility] st Contact Info) Description 04/06/2024 Refill [facility] MEDICINE [address] [place] [address] Cyndie Delaney MD [address] [place] [address] Primary hypertension Social History Tobacco Use Types [...] documented as of this encounter Care Teams Coding Auditor Relationship Specialty Start Date End Date Cyndie Delaney MD [address] [place] [phone] PCP - General Internal Medicine 09/22/22 06/13/24 documented as of this encounter
--- OUTSIDE RECORDS SUMMARY | 2025-02-12 09:31 | XMS_ITS | Encounter Summary ---
Author Organization [employer] Address [address] [place] [address] [place] [address] Care Team Providers Care Veterans Rehabilitation Counselor Name Role Phone Cyndie Delaney MD Primary Care Pro vider Reason for Visit * Reason Onset Date Comments Med Refill 01/30/2024 Encounter Details Date Type Department Care Team ([facility] st Contact Info) Description 01/30/2024 Refill [facility] MED[facility]INE [address] [place] [address] Cyndie Delaney MD [address] [place] [address] Social History Tobacco Use Types Packs/Day Years [...] documented as of this encounter Care Teams Veterans Rehabilitation Counselor Relationship Specialty Start Date End Date Cyndie Delaney MD [address] [place] [phone] PCP - General Internal Medicine 09/22/22 06/13/24 documented as of this encounter
--- OUTSIDE RECORDS SUMMARY | 2025-02-12 09:31 | XMS_ITS | Encounter Summary ---
Author Organization [employer] Address [address] [place] [address] Care Team Providers Care Warranty Manager Name Role Phone Ofelia New [facility] Primary Care Provider [phone] Cyndie Delaney MD Primary Care Pro vider Reason for Visit * Reason Comments Med Refill Encounter Details Date Type Department Care Team (Late st Contact Info) Description 07/23/2022 Refill [facility] MED[facility]INE [address] [place] [address] Ofelia New [facility] [address] [place] [address] Primary hypertension Social History Tobacco Use Types [...] hypertension documented in this encounter Care Teams Warranty Manager Relationship Specialty Start Date End Date Ofelia New FNP [address] [place] [address] PCP - General Family Medicine 03/09/22 09/21/22 Cyndie Delaney MD [address] [place] [id number] PCP - General Internal Medicine 09/22/22 06/13/24 documented as of this encounter
== END 2025-02-12 08:54 | disposition home or self-care (01) ==
LOC: HO.MRI 08:53
PROVIDERS: Visit Provider Urology
DX: R97.20 Elevated prostate specific antigen [PSA] (principal); N40.2 Nodular prostate without lower urinary tract symptoms
CPT/HCPCS: 72197; 76377; A9585

== ENCOUNTER → 2025-02-12 09:04 | Outpatient (BNV) | payer BC, SELFPAY | PROVIDERS: Visit Provider Radiology Diagnostic Radiology | DX: N40.2 Nodular prostate without lower urinary tract symptoms (principal) | CPT/HCPCS: 72197; 76377 ==

== ENCOUNTER 2025-02-16 10:51 | Outpatient (AMB) | payer BC, SELFPAY ==
--- NOTE | 2025-02-16 11:05 | MHC.OFFVIS ---
Intake Visit Reasons: 6W/MRI Intake Note: Patient is Present for Follow Up MRI Results Urology Medication: None Antibiotic Allergies: Tetracyclines Blood Thinners: None Costing Manager Required: No Accompanied by: Self / Same As Patient Allergies Tetracyclines (TETRACYCLINES) Allergy (Mild, Verified 02/16/25 11:08) RASH HPI Comments Details: Jez is a pleasant male. He is a patient of Dr. Armenta. He is seen for the following urologic conditions - complex renal cyst - elevated PSA Follow-up from prostate MRI - 52 gm - Focus of abnormal signal intensity in the left posterolateral peripheral zone in the mid gland as described, suspicious for clinically significant prostate carcinoma - PiRADS 3 Trial finasteride Six-month follow-up PSA Elevated PSA PSA 9 KEI 3+ no nodules Prostate MRI - 50 g, focus of signal intensity left posterolateral peripheral zone Complex renal cyst - nephrolithiasis Initially diagnosed at [facility] 2014 Has been followed with yearly ultrasounds Was not able to get 1 in the past 2 years Here today with prior imaging documentation Imaging - 07/31 [facility] bilateral renal cysts 5.7 cm, 2.5 cm on right, between 1.5 and 3.5 cm on left. Right cyst with septation - 08/31 bilateral ultrasound with bilateral renal cysts simple in nature, 5 mm stone left side - 12/03 bilateral ultrasound renal cysts stable no stone Discussion today regarding natural history of renal cyst Continue with surveillance imaging for stone PFSH Medical History History of Mohs micrographic surgery for skin cancer Renal cyst History of tennis elbow Shingles Skin cancer Osteoarthritis Fatty liver ANTONY (obstructive sleep apnea) Rheumatic fever HLD (hyperlipidemia) HTN (hypertension) Surgical History Hx of umbilical hernia repair H/O colonoscopy History of ankle surgery Family History Father CAD (coronary artery disease) CHF (congestive heart failure) Mother Breast cancer Paternal Uncle CAD (coronary artery disease) Social History Are you a primary child care supervisor to a significant other at home: No Do you presently have visiting nurse or other home services: No Patient Tobacco Use Status: Never used Tobacco Advance Directives Date on File: 02/08/20 Review of Systems Const Denies chills and Denies fever(s) Card Reports no additional complaints and Denies syncope Resp Denies cough GI Denies abdominal pain and Denies heartburn Reports as per HPI and Denies change in libido Neuro Denies syncope Psych Denies change in libido Endo Denies change in libido Physical Exam Const General: cooperative, healthy appearing, comfortable and no acute distress Orientation/consciousness: patient oriented x3 HEENT Face and sinus: Yes normal facial exam Mouth: moist mucous membranes Neck Neck: Yes normal visual inspection, Yes full ROM and Yes trachea midline Chest Chest palpation & inspection: normal inspection of the chest Resp Effort & Inspection: normal respiratory effort, able to speak in complete sentences and no respiratory distress GI Inspection: Yes normal to inspection Back/Spine/Pelvis Cervical Spine: normal cervical lordosis Thoracic/Lumbar Spine: thoracic and lumbar spine normal to inspection Skin General skin exam: no rashes or lesions noted Neuro General: patient oriented x3, gait normal, tone normal and moves all extremities Extrem General: Yes normal to inspection and Yes capillary refill normal Assessment & Plan Assessment & Plan (1) Elevated PSA: Code(s): R97.20 - Elevated prostate specific antigen [PSA] Category: Medical (2) Prostate nodule: Code(s): N40.2 - Nodular prostate without lower urinary tract symptoms Category: Medical Plan Trial finasteride Four-month follow-up PSA Orders: Orders Prostate Specific Antigen 4 Months R97.20 - Elevated prostate specific antigen [PSA] Medications: New finasteride 5 mg PO DAILY 90 tabs 1RF 90 days R97.20 - Elevated prostate specific antigen [PSA] Patient Instructions: This note is constructed using voice recognition software. While every effort has been made to ensure accuracy field return repairer errors may have been included. Imaging studies, laboratory and physical exam results were discussed and reviewed in detail. No major barriers to patient understanding were identified. An opportunity to ask questions regarding the treatment plan was provided. All questions were answered. The patient expressed understanding and agreement with the above treatment plan. The patient is aware they should contact our office by phone for worsening of their current condition or the appearance of new urologic symptoms. Compliance is encouraged with any medications and followup testing that is ordered. It is a privilege to participate in the urologic care of your patient. If you have any questions or concerns regarding treatment for the above conditions, or other urologic issues, please do not hesitate to contact me. The office telephone contact is [phone]. Sincerely, Dr Aditya Varela MD, [facility] - Urology Compassionate Specialist Care for the Genitourinary System Coding Level of Care Code Est Pt Level 4 (12530) Complex EM visit Add On G2211 Diagnoses Elevated PSA R97.20 Prostate nodule N40.2
--- OUTSIDE RECORDS SUMMARY | 2025-02-16 12:51 | XMS_ITS | Clinical Summary ---
Author Organization [employer] Address [address] [place] [address] [address] [place] [address] Care Team Providers Care House Piping Inspector Name Role Phone Unavailable Primary Care Provider [...] 8:40 AM EDT) Triglycerides 115 <150 mg/dL [facility] Comment:Desirable Triglyceri de: less than 150 mg/dLBorderline High Triglyceride 150-199 mg/dLHigh Triglyceride: 200-499 mg/dLVery High Triglyceride: greater than or equal to 5OO mg/dL Cholesterol 127 <200 mg/dL [facility] Comment:Desirable Cholestero l: less than 200 mg/dLBorderline High Cholesterol: 200-239 mg/dLHigh Cholesterol: greater than 239 mg/dL LDL Cholesterol Calculated 68 <100 mg/dL [facility] Comment:Desirable LDL: less than 100 mg/dLNear Optimal/Above Optimal LDL: 110- 129 mg/dLBorderline High LDL: 130-159 mg/dLHigh LDL: 160-189 mg/dLVery High LDL: greater than or equal to 190 mg/dL HDL Cholesterol 36(L) >40 mg/dL [facility] Comment:Desirable HDL: great er than 40 mg/dL Note: This HDL assay may give artificially low results in patients with liver disease. Blood Venous blood specimen / Unknown 01/20/2024 8:40 AM EDT 01/20/2024 11:20 AM EDT us Cyndie Marr MD LAB BLOOD ORDERAB LES Final Result Performing Organization Address [facility] Co de Phone Number [facility] [address] [place] [address] [phone] * Hepatitis C Antibody Reflex (11/25/2022 8:59 AM EDT) Hepatitis C Antibody Nonreactive Nonreactive [facility] Comment:Antibodies to HCV no t detected; does not exclude early acuteHCV infection. 11/25/2022 8:59 AM EDT 11/25/2022 11:13 AM EDT us Cyndie Marr MD LAB BLOOD ORDERAB LES Final Result Performing Organization Address [facility] de Phone Number [facility] [address] [place] [address] [phone] from Last 3 Months or Most Recently Relevant to Health Maintenance Insurance [facility] MEDICARE ADVANTAGE HMO
--- OUTSIDE RECORDS SUMMARY | 2025-02-16 12:51 | XMS_ITS | Encounter Summary ---
Author Organization [employer] Address [address] [place] [id number] Care Team Providers Care Dog Licenser Name Role Phone Ofelia New [facility] Primary Care Provider [phone] Cyndie Delaney MD Primary Care Pro vider Reason for Visit * Reason Comments Med Refill Encounter Details Date Type Department Care Team (Late st Contact Info) Description 07/23/2022 Refill [facility] MEDICINE [address] [place] [address] Ofelia New [facility] [address] [place] [address] Primary hypertension Social History Tobacco Use Types [...] hypertension documented in this encounter Care Teams Dog Licenser Relationship Specialty Start Date End Date Ofelia New FNP [address] [place] [address] PCP - General Family Medicine 03/09/22 09/21/22 Cyndie Delaney MD [address] [place] [id number] PCP - General Internal Medicine 09/22/22 06/13/24 documented as of this encounter
--- OUTSIDE RECORDS SUMMARY | 2025-02-16 12:51 | XMS_ITS | Encounter Summary ---
Author Organization [employer] Address [address] [place] [address] [place] [address] Care Team Providers Care Cloth Shearer Name Role Phone Cyndie Delaney MD Primary Care Pro vider Reason for Visit * Reason Onset Date Comments Med Refill 06/17/2023 Encounter Details Date Type Department Care Team ([facility] st Contact Info) Description 06/17/2023 Telephone [facility] MEDICINE [address] [place] [address] Cyndie Delaney MD [address] [place] [address] Med Refill Social History Tobacco Use Types [...] 20 MG tablet To be sent to: [id number] [place] [address] [facility] documented in this encounter Plan of Treatment Not on file documented as of this encounter Visit Diagnoses Not on filedocumented in this encounter Additional Health Concerns Assessment Noted Time PHQ-9 Depression Total Score: 0 11/19/19 10:58 AM EDT documented as of this encounter Care Teams Cloth Shearer Relationship Specialty Start Date End Date Cyndie Delaney MD [address] [place] [id number] PCP - General Internal Medicine 09/22/22 06/13/24 documented as of this encounter
--- OUTSIDE RECORDS SUMMARY | 2025-02-16 12:51 | XMS_ITS | Encounter Summary ---
Author Organization [employer] Address [address] [place] [address] [place] [address] Care Team Providers Care International First Officer Name Role Phone Cyndie Delaney MD Primary Care Pro vider Reason for Visit * Reason Comments Med Refill Encounter Details Date Type Department Care Team ([facility] st Contact Info) Description 04/06/2024 Refill [facility]INE [address] [place] [address] Cyndie Delaney MD [address] [place] [address] Primary hypertension Social History Tobacco Use Types [...] documented as of this encounter Care Teams International First Officer Relationship Specialty Start Date End Date Cyndie Delaney MD [address] [place] [id number] PCP - General Internal Medicine 09/22/22 06/13/24 documented as of this encounter
--- OUTSIDE RECORDS SUMMARY | 2025-02-16 12:51 | XMS_ITS | Encounter Summary ---
Author Organization [employer] Address [address] [place] [address] [place] [address] Care Team Providers Care Manager Of Regulatory Affairs Name Role Phone Cyndie Delaney MD Primary Care Pro vider Reason for Visit * Reason Onset Date Comments Med Refill 01/30/2024 Encounter Details Date Type Department Care Team ([facility] st Contact Info) Description 01/30/2024 Refill [facility] MEDICINE [address] [place] [address] Cyndie Delaney MD [address] [place] [address] Social History Tobacco Use Types Packs/Day Years [...] documented as of this encounter Care Teams Manager Of Regulatory Affairs Relationship Specialty Start Date End Date Cyndie Delaney MD [address] [place] [id number] PCP - General Internal Medicine 09/22/22 06/13/24 documented as of this encounter
== END 2025-02-16 11:54 | disposition home or self-care (01) ==
LOC: HO.HUSH 10:51
PROVIDERS: Visit Provider Urology
DX: R97.20 Elevated prostate specific antigen [PSA] (principal); N40.2 Nodular prostate without lower urinary tract symptoms
CPT/HCPCS: 99214